=== PATIENT | female | born 1975 | race Caucasian/White ===

== ENCOUNTER 2017-04-28 13:11 | Emergency (ER) | payer OTHER ==
--- NOTE | 2017-04-28 15:36 | RAD ---
HISTORY: Trauma, chest pain no COMPARISONS: None VIEWS: 8, Frontal view of the chest with frontal and oblique views of the left hemithorax FINDINGS: There is no displaced rib fracture or pneumothorax. The visualized lungs are clear. IMPRESSION: NO DISPLACED RIB FRACTURE OR PNEUMOTHORAX.
--- NOTE | 2017-04-28 15:44 | ED ---
Respiratory - HPI Summary HPI Summary: 41F presents with left sided rib pain for a day. She states that last night she tripped over her dog and landed on left side of her ribs. She admits to pain with deep breath. She states it is rib pain and to chest pain. She has history of emphysema so she has been using the incentive spirometry at home to prevent pneumonia. She denies any cough or fever. She denies any head injury or abdominal pain. She has history of back pain which she is on morphine for. She states the morphine is barely touching her pain. - History of Current Complaint Chief Complaint: EDGeneral Stated Complaint: FALL Time Seen by Provider: 04/28/17 15:15 Pain Intensity: 10 - Allergy/Home Medications Allergies/Adverse Reactions: Allergies Allergy/AdvReac Type Severity Reaction Status Date / Time Penicillin G Allergy Severe Hives Verified 03/03/16 11:40 Adhesive Tape Allergy Mild Rash Verified 03/03/16 11:40 Diphenhydramine Allergy Hives Verified 03/03/16 11:40 [From Benadryl] Ibuprofen [From Motrin] Allergy Rash Verified 03/03/16 11:40 Levofloxacin Allergy Itching Verified 03/03/16 11:40 PMH/Surg Hx/FS Hx/Imm Hx Endocrine/Hematology History: Denies: Hx Diabetes Cardiovascular History: Denies: Hx Hypertension, Hx Pacemaker/ICD Respiratory History: Reports: Hx Chronic Obstructive Pulmonary Disease (COPD) - RECENT HOSPITALIZATION, Hx Pneumonia, Other Respiratory Problems/Disorders - Pack a day smoker History: Denies: Hx Renal Disease Musculoskeletal History: Reports: Hx Back Problems Sensory History: Reports: Hx Contacts or Glasses Denies: Hx Hearing Aid Opthamlomology History: Reports: Hx Contacts or Glasses Psychiatric History: Denies: Hx Panic Disorder - Surgical History Surgery Procedure, Year, and Place: 2 LEFT KNEE SURGERIES-RIGHT LOBE LUNG REOPENED. 2 C-SECTIONS. RT WRIST CARPAL TUNNEL. RT ELBOW ULNAR NERVE RELEASE Infectious Disease History: Denies: Traveled Outside the [place] in Last 30 Days - Family History Known Family History: Positive: Cardiac Disease - mother, Hypertension - father - Social History Alcohol Use: None Substance Use Type: Reports: None Hx Tobacco Use: Yes Smoking Status (MU): Heavy Every Day Tobacco Smoker Review of Systems Negative: Fever Positive: Other - rib pain. Negative: Chest Pain Positive: Shortness Of Breath - with deep breath due to pain. Negative: Cough Negative: Headache All Other Systems Reviewed And Are Negative: Yes Physical Exam Triage Information Reviewed: Yes Vital Signs On Initial Exam: Initial Vitals Temp Pulse Resp BP Pulse Ox 98.3 F 94 16 114/70 94 04/28/17 14:00 04/28/17 14:00 04/28/17 14:00 04/28/17 14:00 04/28/17 14:00 Vital Signs Reviewed: Yes Appearance: Positive: Well-Appearing Skin: Positive: Warm, Dry, Other - ecchmoysis over ribs 2-5 on anterior side of left chest near sternum Head/Face: Positive: Normal Head/Face Inspection Eyes: Positive: Normal, EOMI, KUMAR, Conjunctiva Clear ENT: Positive: Normal ENT inspection, Pharynx normal, TMs normal Respiratory/Lung Sounds: Positive: Clear to Auscultation, Decreased Breath Sounds - is patient baseline due to emphysema Cardiovascular: Positive: Normal, RRR Diagnostics - Vital Signs Vital Signs Temp Pulse Resp BP Pulse Ox 04/28/17 14:00 98.3 F 94 16 114/70 94 - Laboratory Lab Statement: Any lab studies that have been ordered have been reviewed, and results considered in the medical decision making process. Disposition - Course Course Of Treatment: 41F presents with left sided rib pain for a day. She states that last night she tripped over her dog and landed on left side of her ribs. She admits to pain with deep breath. She states it is rib pain and to chest pain. She has history of emphysema so she has been using the incentive spirometry at home to prevent pneumonia. [facility] denies any cough or fever. She denies any head injury or abdominal pain. She has history of back pain which she is on morphine for. She states the morphine is barely touching her pain. on exam has ecchymosis over anterior rib 2-5. no step off, xray normal. told to continue incentive spirometry and follow up with primary. will return if develops pneumonia. patient understands and agrees with plan. - Differential Dx - Cardiopulmonary Differential Diagnoses - Cardiopulmonary: Pneumothorax, Other - fracture, contusion - Diagnoses Provider Diagnoses: Contusion of rib Discharge - Discharge Plan Condition: Good Disposition: HOME Patient Education Materials: Rib Contusion (ED) Referrals: Tuan Shannon DO [Primary Care Provider] - Additional Instructions: Take deep breath throughout the day Use normal pain medication Follow up with primary care physician within 5 days Return to ED if develop new productive cough, fever, or any new or worsening symptoms
[2017-04-28 15:50] VITALS: BP 102/60
== END 2017-04-28 16:07 | disposition home or self-care (01) ==
LOC: ED 13:11
DX: S20.212A Contusion of left front wall of thorax, initial encounter (principal); W01.0XXA Fall on same level from slipping, tripping and stumbling without subsequent striking against object, initial encounter; Y93.9 Activity, unspecified; Y92.9 Unspecified place or not applicable; R07.81 Pleurodynia; F17.210 Nicotine dependence, cigarettes, uncomplicated; R06.02 Shortness of breath
CPT/HCPCS: 71111; 99281

== ENCOUNTER 2017-12-04 15:15 | Emergency (ER) | payer OTHER ==
[2017-12-04] MEDS ORDERED: Albuterol/Ipratropium NEB.SOL* Albuterol 2.5 MG/Ipratropium 0.5 MG 3 ML INH ONE (16:31)
[2017-12-04] MEDS ORDERED: predniSONE TAB* 20 MG PO ONE (16:31)
--- NOTE | 2017-12-04 17:30 | RAD ---
INDICATION: Shortness of breath. COMPARISON: Chest x-ray dated June 25, 2016 TECHNIQUE: PA and lateral views of the chest were obtained. FINDINGS: The heart and mediastinum are normal in size and contour. The lungs are grossly clear. There is no evidence of large pleural effusion. Visualized bones are normal for the patient's age. There is no radiographic evidence of free air beneath the diaphragm IMPRESSION: No radiographic evidence of acute cardiopulmonary disease.
[2017-12-04 19:41] VITALS: BP 104/64
--- NOTE | 2017-12-04 19:51 | ED ---
Mariano Vora Thomas, scribed for Odin Grewal MD on 12/04/17 at 1641 . Shortness of Breath - HPI Summary HPI Summary: The patient is a 42 year old female complaining of a sensation of inability to take a deep breath for the last three days. She complains of a yellow productive cough and chills. Past medical history includes COPD. She is on Ventolin, albuterol, Spiriva, gabapentin, and morphine. The patient is on oxygen at night and as needed. - History of Current Complaint Chief Complaint: EDGeneral Time Seen by Provider: 12/04/17 15:30 Hx Obtained From: Patient Onset/Duration: Lasting Days - 3, Still Present Timing: Constant Current Severity: Mild Dyspnea At: Rest Aggrevating Factors: Deep Breaths Associated Signs & Symptoms: Cough (Productive), Chills - Allergy/Home Medications Allergies/Adverse Reactions: Allergies Allergy/AdvReac Type Severity Reaction Status Date / Time MS Penicillin G Allergy Severe Hives Verified 12/04/17 15:22 [Penicillin G] Adhesive Tape Allergy Mild Rash Verified 12/04/17 15:22 MS Diphenhydramine Allergy Hives Verified 12/04/17 15:22 [From Benadryl] MS Ibuprofen [From Motrin] Allergy Rash Verified 12/04/17 15:22 MS Levofloxacin Allergy Itching Verified 12/04/17 15:22 [Levofloxacin] PMH/Surg Hx/FS Hx/Imm Hx Endocrine/Hematology History: Denies: Hx Diabetes Cardiovascular History: Denies: Hx Hypertension, Hx Pacemaker/ICD Respiratory History: Reports: Hx Chronic Obstructive Pulmonary Disease (COPD) - RECENT HOSPITALIZATION, Hx Pneumonia, Other Respiratory Problems/Disorders - Pack a day smoker History: Denies: Hx Renal Disease Musculoskeletal History: Reports: Hx Back Problems Sensory History: Reports: Hx Contacts or Glasses Denies: Hx Hearing Aid Opthamlomology History: Reports: Hx Contacts or Glasses Psychiatric History: Denies: Hx Panic Disorder - Surgical History Surgery Procedure, Year, and Place: 2 LEFT KNEE SURGERIES-RIGHT LOBE LUNG REOPENED. 2 C-SECTIONS. RT WRIST CARPAL TUNNEL. RT ELBOW ULNAR NERVE RELEASE Infectious Disease History: No Infectious Disease History: Denies: Traveled Outside the [place] in Last 30 Days - Family History Known Family History: Positive: Cardiac Disease - mother, Hypertension - father - Social History Alcohol Use: None Substance Use Type: Reports: None Hx Tobacco Use: Yes Smoking Status (MU): Light Every Day Tobacco Smoker Review of Systems Positive: Chills. Negative: Fever Positive: Shortness Of Breath, Cough - productive All Other Systems Reviewed And Are Negative: Yes Physical Exam - Summary Physical Exam Summary: Appearance: The patient is well-nourished in no acute distress and in no acute pain. Skin: The skin is warm and dry and skin color reflects adequate perfusion. HEENT: The head is normocephalic and atraumatic. The pupils are equal and reactive. The conjunctivae are clear and without drainage. Nares are patent and without drainage. Mouth reveals moist mucous membranes and the throat is without erythema and exudate. The external ears are intact. The ear canals are patent and without drainage. The tympanic membranes are intact. Neck: the neck is supple with full range of motion and non-tender. There are no carotid bruits. There is no neck vein distension. Respiratory: Chest is non-tender. She has decreased breath sounds. She has some expiratory wheezes. Cardiovascular: Heart is regular rate and rhythm. There is no murmur or rub auscultated. There is no peripheral edema and pulses are symmetrical and equal. Abdomen: The abdomen is soft and non-tender. There are normal bowel sounds heard in all four quadrants and there is no organomegaly palpated. Musculoskeletal: There is no back tenderness noted. Extremities are non-tender with full range of motion. There is good capillary refill. There is no peripheral edema or calf tenderness elicited. Neurological: Patient is alert and oriented to person, place and time. The patient has symmetrical motor strength in all four extremities.~Cranial nerves are grossly intact. Deep tendon reflexes are symmetrical and equal in all four extremities. Psychiatric: The patient has an appropriate affect and does not exhibit any anxiety or depression. Triage Information Reviewed: Yes Vital Signs On Initial Exam: Initial Vitals Temp Pulse Resp BP Pulse Ox 97.8 F 122 28 130/78 91 12/04/17 15:17 12/04/17 15:17 12/04/17 15:17 12/04/17 15:17 12/04/17 15:17 Vital Signs Reviewed: Yes Diagnostics - Vital Signs Vital Signs Temp Pulse Resp BP Pulse Ox 12/04/17 15:31 98.5 F 99 16 128/78 94 03/18/18 15:17 97.8 F 122 28 130/78 91 - Laboratory Lab Statement: Any lab studies that have been ordered have been reviewed, and results considered in the medical decision making process. - Radiology CXR Xray Interpretation: No Acute Changes - No radiographic evidence of acute cardiopulmonary disease. Dr. Grewal has reviewed this report. Radiology Interpretation Completed By: Radiologist - EKG 15:42 Cardiac Rate: NL EKG Rhythm: Sinus Rhythm - at 97 BPM Re-Evaluation - Re-Evaluation First Eval Re-Evaluation Time: 19:24 Comment: Results discussed. Patient will be discharged. Course/Dx - Course Course Of Treatment: Ms. Randhawa presentedto the ED with a COPD exacerbation and a productive cough of a few days duration. She improved with a duoneb and was started on steroids and antibiotics. - Diagnoses Provider Diagnoses: COPD exacerbation Discharge - Discharge Plan Condition: Stable Disposition: HOME Prescriptions: Clarithromycin TAB* [Biaxin TAB*] 500 mg PO BID #20 tab methylPREDNISolone [Medrol Dosepak 4 MG*] 4 mg PO .SEE JUSTINA INSTRUCTION #1 tab Patient Education Materials: COPD (Chronic Obstructive Pulmonary Disease) (ED) Referrals: Tuan Shannon DO [Primary Care Provider] - 3 Days Additional Instructions: Follow up with your primary care physician in three days. Return to the emergency department for any new or worsening symptoms. The documentation as recorded by the Mariano mathews Thomas accurately reflects the service I personally performed and the decisions made by Uri fleming Richard L, MD.
== END 2017-12-04 19:41 | disposition home or self-care (01) ==
LOC: ED 15:15
DX: J44.1 Chronic obstructive pulmonary disease with (acute) exacerbation (principal); F17.200 Nicotine dependence, unspecified, uncomplicated; Z88.3 Allergy status to other anti-infective agents; Z88.0 Allergy status to penicillin; Z88.8 Allergy status to other drugs, medicaments and biological substances
CPT/HCPCS: 71046; 93005; 94640; 99283; A9270-GY; J7512

== ENCOUNTER 2017-12-05 18:43 | Observation (INO) | payer OTHER ==
[2017-12-05] MEDS ORDERED: Albuterol/Ipratropium NEB.SOL* Albuterol 2.5 MG/Ipratropium 0.5 MG 3 ML INH ONE (21:20)
[2017-12-05] MEDS ORDERED: methylPREDNISolone 125 MG* 2 ML VIAL IV ONE (21:20)
[2017-12-05] MEDS ORDERED: Magnesium Sulfate 2 GM IV* 2 GM/50 ML BAG IVPB ONE (21:20)
[2017-12-05] MEDS: Albuterol 2.5 MG/3 ML NEB.SOL* (0.083%) INH SCH (21:53)
[2017-12-05 21:55] LABS: ABS Basophils 0 10^3/ul (0-0.2); ABS Eosinophils 0 10^3/ul (0-0.6); ABS Lymphocytes 1.2 10^3/ul (1.0-4.8); ABS Monocytes 0.2 10^3/ul (0-0.8); ABS Neutrophils 7.7 10^3/ul (1.5-7.7); ABS Nucleated RBC 0 10^3/ul; Eosinophil % 0 % (0-6); Hematocrit 51 % (35-47); Hemoglobin 17.7 g/dl (12.0-16.0); Lymphocyte % 13.2 % (25-47); Mean Corpuscular HGB Conc 35 g/dl (31-36); Mean Corpuscular Hemoglobin 34 pg (27-31); Mean Corpuscular Volume 98 fL (80-97); Mean Platelet Volume 9 um3 (7.4-10.4); Nucleated Red Blood Cells % 0.1; Platelet Count 166 10^3/ul (150-450); Red Blood Count 5.21 10^6/ul (4.0-5.4); Red Cell Distribution Width 13 % (10.5-15); White Blood Count 9.2 10^3/ul (3.5-10.8)
[2017-12-05 22:06] LABS: INR 0.97 (0.77-1.02)
[2017-12-05 22:14] LABS: EGFR Non-African American 77.2 (>60)
[2017-12-05] MEDS ORDERED: NS 0.9% 1000 ML* 1,000 ML IV ONE (22:54)
[2017-12-05] MEDS ORDERED: Iohexol 350* (CONTRAST) 500 ML MDV IV ONE (23:06)
[2017-12-06] MEDS: Albuterol 2.5 MG/3 ML NEB.SOL* (0.083%) INH SCH (00:42)
--- NOTE | 2017-12-06 01:28 | ED ---
Mariano Vora Thomas, scribed for Celia Mckinney MD on 12/05/17 at 2145 . Shortness of Breath - HPI Summary HPI Summary: The patient is a 42 year old female complaining of shortness of breath and pain when breathing that began four days ago. She has a history of COPD and she is on 2L of home oxygen. She took her normal breathing treatments earlier today. Yesterday, the patient was seen at [facility] and prescribed antibiotics and steroids , which she has been taking as directed. She took acetaminophen four hours before arrival. - History of Current Complaint Chief Complaint: EDShortnessOfBreath Time Seen by Provider: 12/05/17 21:11 Hx Obtained From: Patient Onset/Duration: Lasting Days - 4, Still Present Timing: Constant Current Severity: Mild Dyspnea At: Rest Aggrevating Factors: Nothing Alleviating Factors: Other - Patient has been taking normal breathing treatments - Allergy/Home Medications Allergies/Adverse Reactions: Allergies Allergy/AdvReac Type Severity Reaction Status Date / Time Adhesive Tape Allergy Mild Rash Verified 12/05/17 19:17 diphenhydramine Allergy Hives Verified 12/05/17 19:17 [From Benadryl] ibuprofen [From Motrin] Allergy Rash Verified 12/05/17 19:17 levofloxacin [From Levaquin] Allergy Itching Verified 12/05/17 19:17 Penicillins Allergy Hives Verified 12/05/17 19:17 PMH/Surg Hx/FS Hx/Imm Hx Endocrine/Hematology History: Denies: Hx Diabetes Cardiovascular History: Denies: Hx Hypertension, Hx Pacemaker/ICD Respiratory History: Reports: Hx Chronic Obstructive Pulmonary Disease (COPD) - RECENT HOSPITALIZATION, Hx Pneumonia, Other Respiratory Problems/Disorders - Pack a day smoker History: Denies: Hx Renal Disease Musculoskeletal History: Reports: Hx Back Problems Sensory History: Reports: Hx Contacts or Glasses Denies: Hx Hearing Aid Opthamlomology History: Reports: Hx Contacts or Glasses Psychiatric History: Denies: Hx Panic Disorder - Surgical History Surgery Procedure, Year, and Place: 2 LEFT KNEE SURGERIES-RIGHT LOBE LUNG REOPENED. 2 C-SECTIONS. RT WRIST CARPAL TUNNEL. RT ELBOW ULNAR NERVE RELEASE Infectious Disease History: No Infectious Disease History: Denies: Traveled Outside the [place] in Last 30 Days - Family History Known Family History: Positive: Cardiac Disease - mother, Hypertension - father - Social History Alcohol Use: None Substance Use Type: Reports: None Hx Tobacco Use: Yes Smoking Status (MU): Light Every Day Tobacco Smoker Review of Systems Negative: Fever Positive: Shortness Of Breath, Other - Pain with breathing All Other Systems Reviewed And Are Negative: Yes Physical Exam - Summary Physical Exam Summary: VITAL SIGNS: Reviewed. GENERAL: Patient is a well-developed and nourished female who is lying comfortable in the stretcher. Patient is not in any acute respiratory distress. HEAD AND FACE: No signs of trauma. No ecchymosis, hematomas or skull depressions. No sinus tenderness. EYES: PERRLA, EOMI x 2, No injected conjunctiva, no nystagmus. EARS: Hearing grossly intact. Ear canals and tympanic membranes are within normal limits. MOUTH: Oropharynx within normal limits. NECK: Supple, trachea is midline, no adenopathy, no JVD, no carotid bruit, no c- spine tenderness, neck with full ROM. CHEST: Symmetric, no tenderness at palpation LUNGS: She has bilateral inspiratory and expiratory wheezes. CVS: Regular rate and rhythm, S1 and S2 present, no murmurs or gallops appreciated. ABDOMEN: Soft, non-tender. No signs of distention. No rebound no guarding, and no masses palpated. Bowel sounds are normal. EXTREMITIES: FROM in all major joints, no edema, no cyanosis or clubbing. NEURO: Alert and oriented x 3. No acute neurological deficits. Speech is normal and follows commands. SKIN: Dry and warm Triage Information Reviewed: Yes Vital Signs On Initial Exam: Initial Vitals Temp Pulse Resp BP Pulse Ox 98.5 F 129 24 101/48 98 12/05/17 19:12 12/05/17 19:12 12/05/17 19:12 12/05/17 19:12 12/05/17 19:12 Vital Signs Reviewed: Yes Diagnostics - Vital Signs Vital Signs Temp Pulse Resp BP Pulse Ox 12/05/17 20:54 82 20 12/05/17 20:49 99.1 F 133/79 97 12/05/17 19:12 98.5 F 129 24 101/48 98 - Laboratory Result Diagrams: 12/05/17 21:40 12/05/17 22:32 Lab Statement: Any lab studies that have been ordered have been reviewed, and results considered in the medical decision making process. - Radiology CXR Xray Interpretation: No Acute Changes - Hyperinflation. No acute infiltrate. Pending offical report. Radiology Interpretation Completed By: ED Physician - CT CTA Chest/Thorax CT Interpretation: No Acute Changes - No pulmonary embolism. No aortic dissection or aneurysm. No pneumonia or pleural effusions. Minmal dependent mucus left main bronchus. Minimal biapical scarring. Small blebs bilateral lungs. Minimal anterior mediastinal soft tissue, probably thymic. Dr. Mckinney has reviewed this report. CT Interpretation Completed By: Radiologist - EKG 21:25 Cardiac Rate: NL EKG Rhythm: Sinus Rhythm - at 100 BPM EKG Interpretation: Normal axis, normal intervals, no acute ischemic change. Re-Evaluation - Re-Evaluation First Eval Re-Evaluation Time: 01:20 Comment: Results discussed. Patient will be admitted. Course/Dx - Course Assessment/Plan: The patient is a 42 year old female complaining of shortness of breath and pain when breathing that began four days ago. In the ED course the patient was given Ventolin, DuoNeb, magnesium sulfate, and Solu-Medrol. Bloodwork was obtained. EKG shows sinus rhythm. CXR shows hyperinflation with no acute infiltrate. CTA Chest/Thorax shows No pulmonary embolism. No aortic dissection or aneurysm. No pneumonia or pleural effusions. Minmal dependent mucus left main bronchus. Minimal biapical scarring. Small blebs bilateral lungs. Minimal anterior mediastinal soft tissue, probably thymic. The patient is diagnosed with COPD exacerbation. Dr. Landers will admit the patient. - Diagnoses Provider Diagnoses: COPD exacerbation - Physician Notifications Discussed Care of Patient With: Halima Landers Time Discussed With Above Provider: 01:20 Instructed by Provider To: Admit As Inpatient Discharge - Discharge Plan Condition: Stable Disposition: ADMITTED TO [facility] Referrals: Tuan Shannon DO [Primary Care Provider] - The documentation as recorded by the Mariano mathews Thomas accurately reflects the service I personally performed and the decisions made by me, Celia Mckinney MD.
[2017-12-06] MEDS ORDERED: Acetaminophen TAB* 325 MG PO PRN (01:36)
[2017-12-06] MEDS ORDERED: Docusate CAP* 100 MG PO PRN (01:36)
[2017-12-06] MEDS ORDERED: Al Hydrox/Mg Hydrox/Simet LIQ* 30 ML UDC PO PRN (01:36)
[2017-12-06] MEDS ORDERED: Ondansetron INJ* 2 MG/ML VIAL IV PRN (01:36)
[2017-12-06] MEDS ORDERED: Senna TAB PO PRN (01:36)
[2017-12-06] MEDS ORDERED: Albuterol 2.5 MG/3 ML NEB.SOL* (0.083%) INH PRN (01:39)
[2017-12-06] MEDS ORDERED: Morphine ORAL.SOLN 10 mg* 2 MG/ML UDC 5 ml PO PRN (01:42)
[2017-12-06] MEDS ORDERED: Albuterol/Ipratropium NEB.SOL* Albuterol 2.5 MG/Ipratropium 0.5 MG 3 ML INH SCH (02:00)
[2017-12-06] MEDS ORDERED: Spiriva Inhaler DEVICE* 1 EACH DEVICE SCH (02:00)
[2017-12-06] MEDS ORDERED: Spiriva Inhaler DEVICE* 1 EACH DEVICE INH SCH (02:00)
[2017-12-06] MEDS ORDERED: Mouth Piece, Nicotine* 1 EACH CARTRIDGE INH PRN ×2 (02:02)
[2017-12-06] MEDS ORDERED: Nicotine Inhaler* 10 MG AMP INH PRN (02:02)
[2017-12-06] MEDS: NS 0.9% 1000 ML* 1,000 ML IV SCH ×2 (03:22→10:24)
[2017-12-06] MEDS: Albuterol/Ipratropium NEB.SOL* Albuterol 2.5 MG/Ipratropium 0.5 MG 3 ML INH SCH ×4 (03:35→15:33)
[2017-12-06] MEDS: Gabapentin CAP(*) 300 MG PO SCH ×3 (03:41→14:11)
[2017-12-06] MEDS: Morphine TAB Extended Release (*) 30 MG TAB.ER PO SCH ×2 (03:43→14:10)
[2017-12-06] MEDS: Heparin VIAL(*) 5000 UNITS/ML VIAL (FIVE THOUSAND) SUBCUT SCH ×2 (05:42→14:12)
--- NOTE | 2017-12-06 07:54 | RAD ---
INDICATION: Shortness of breath. COMPARISON: Comparison is made with prior study from December 04, 2017. TECHNIQUE: A single AP portable view of the chest was obtained upright. FINDINGS: The heart is within normal limits in size. Mediastinal and hilar contours appear within normal limits. The lungs are hyperinflated and clear. No pleural effusion is seen. IMPRESSION: NO EVIDENCE FOR ACUTE FINDING.
--- NOTE | 2017-12-06 08:16 | RAD ---
INDICATION: 2 days of shortness of breath COMPARISON: CTA of the chest January 25, 2015 TECHNIQUE: Axial source images were acquired following the administration of 59 mL Omnipaque [address] angiographic technique. Coronal and sagittal reconstructed images were constructed and reviewed. FINDINGS: There there are no filling defects in the pulmonary arteries to indicate acute pulmonary embolic disease. The lungs exhibit diffuse centrilobular emphysematous changes. There are no focal infiltrates or effusions. There are no pulmonary parenchymal masses. The heart is normal in size. There is no evidence of pericardial effusion. There is no evidence of aortic aneurysm or dissection. There is no mediastinal, hilar, or axillary lymphadenopathy. The contrast was injected from the right upper extremity and there is evidence of high-grade stenosis through the right subclavian vein. There is reflux of contrast into the dilated right internal jugular vein likely due to the narrowing seen more inferiorly of the brachiocephalic confluence and superior vena cava. Contrast is seen refluxing into the hepatic veins and IVC as well. This is worse when compared to the January 25, 2015 CTA of the chest. The visualized osseous structures appear normal. Limited views of the upper abdomen show no abnormalities. IMPRESSION: 1. No CT of evidence of pulmonary embolism. 2. Diffuse centrilobular emphysematous changes similar to the appearance seen on the January 25, 2015 CT examination. 3. 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 Please correlate to a history of central venous catheters and/or signs and symptoms of central vein insufficiency which could be characterized by swelling and venous hypertension in the upper extremities as well as the head and neck. 4. Reflux of contrast into the IVC and hepatic veins could be seen in the setting of right heart insufficiency.
--- NOTE | 2017-12-06 08:33 | HP ---
CC: Tuan Shannon DO; Fiona King MD * HISTORY AND PHYSICAL: DATE OF ADMISSION: 12/06/17 TIME OF EVALUATION: 0100. PRIMARY CARE PHYSICIAN: Tuan Shannon DO EQUINE SCIENCE INSTRUCTOR: Fiona King MD CHIEF COMPLAINT: Shortness of breath. HISTORY OF PRESENT ILLNESS: This is a 42-year-old female with a past medical history of COPD, on oxygen at bedtime and as needed, with a tobacco history, who presents to the emergency room for the second time in 2 days for shortness of breath. The patient states for the past 3 days she has had shortness of breath and productive cough. She came to the emergency room on the . She was sent home on steroids and antibiotics. She states there was no improvement in her breathing. She returned this evening for worsening shortness of breath. She states she has had fever or low- grade temp of 99.2, chills, chest heaviness. No nausea or vomiting. No abdominal pain. No diarrhea. No dysuria. No constipation. She denies any sick contacts. She is seen by Dr. King and has been using her inhalers and regimen accordingly. Otherwise, remaining review of systems is negative. In the the emergency room, the patient had labs and imaging. She was given a liter of fluid, Solu-Medrol 125 mg IV, magnesium sulfate 2 g, DuoNeb, and albuterol nebulizer, and was referred to the hospitalist service for further evaluation. PAST MEDICAL HISTORY: 1. COPD with extensive emphysema, on oxygen at bedtime and as needed, followed by Dr. King. 2. History of chronic pain. 3. Carpal tunnel syndrome. 4. History of polycythemia vera. 5. Anxiety. 6. Rheumatoid arthritis. 7. History of herniated disks. MEDICATIONS: 1. Albuterol nebulizer and inhaler with spacer as needed. 2. Spiriva. 3. Gabapentin 1200 mg p.o. t.i.d. 4. Morphine 60 mg p.o. b.i.d. 5. Morphine liquid; per patient, she takes 80 mg 4 times a day. 6. Symbicort. ALLERGIES: Adhesive tape, diphenhydramine, ibuprofen, levofloxacin, and penicillin. FAMILY HISTORY: Paternal grandmother with asthma, otherwise unremarkable pulmonary history. SOCIAL HISTORY: The patient lives at home with her 17-year-old child. She also has a grown child that is not living in the home. She is . She is still continuing trying to cut smoking; she is still down to 5 cigarettes per day. The max she smoked was 3 to 4 pack per day for several years. Her healthcare proxy is her father, Sharad Alvarez. No alcohol or illicit drug use. She is on disability. CODE STATUS: Full code. REVIEW OF SYSTEMS: A 14-point review of systems as mentioned in the HPI, otherwise negative. PHYSICAL EXAMINATION GENERAL: Older than stated age female in no acute distress, mildly ill appearing. VITAL SIGNS: Temp T-max 99.1, pulse rate 101, respiratory rate 20, oxygen saturation 89% on 3 L, and blood pressure 116/75. HEENT: Head normocephalic. Pupils equal and reactive, anicteric. Oropharynx: Mucous membranes are dry. NECK: Supple, no lymphadenopathy. RESPIRATORY: Poor aeration. Coarse rhonchi bilaterally with expiratory wheezing. No increased work of breathing noted. CARDIAC: Tachycardia. Soft systolic murmur heard throughout. ABDOMEN: Soft, nontender, nondistended. EXTREMITIES: No clubbing, cyanosis or edema, +2 DPs. NEUROLOGIC: Alert and oriented x3. No gross focal neurologic deficits. LABORATORY DATA: White count 9.2, hemoglobin 17.7, hematocrit 51, platelets 166. INR 0.97. Sodium 135, potassium 4.3, chloride 99, bicarb 28, BUN 17, creatinine 0.81, glucose 99, lactic acid 1.1, calcium 10.4. Troponin is zero. CRP is 1. BNP 25. Influenza negative. RADIOGRAPHIC DATA: Chest x-ray - no acute findings on wet read; chronic COPD changes with hyperinflation. CTA of the chest shows no pulmonary embolism, no aortic dissection or aneurysm, no pneumonia or pleural effusions, minimal dependent mucus left main bronchus, minimal biapical scarring, small blebs bilateral lungs, minimal anterior mediastinal soft tissue, probably thymic. ASSESSMENT: This is a 42-year-old female with a past medical history of COPD, on oxygen at bedtime, with chronic pain and tobacco use who presents to the emergency room for the second time in 2 days for worsening shortness of breath and cough. 1. Shortest of breath and cough. Assessment: Findings are consistent with chronic obstructive pulmonary disease exacerbation, most likely secondary to a viral illness. No white count, no fever. Her flu is negative. Plan: We will continue albuterol q.2 hours as needed, DuoNeb scheduled. Continue on her Z-Roberto, azithromycin 250 mg daily. We will continue on prednisone 40 mg daily and IV fluids and incentive spirometer. We will continue her Spiriva. If no clinical improvement, we would recommend followup with Dr. King inpatient; otherwise, she should follow up with her as an outpatient. We will check a sputum. We will also continue to trend her troponins for her chest heaviness. I suspect this is related to costochondritis from her coughing and chronic obstructive pulmonary disease exacerbation. CHRONIC MEDICAL PROBLEMS: 1. Chronic pain. The amount of narcotics she's on is highly concerning, which may be affecting her respiratory drive. I would recommend followup with her primary care physician to discuss weaning her down off her morphine. We will continue her home dose as prescribed for now, and her gabapentin as well. 3. FEN. We will place the patient on regular diet with IV fluids. 4. DVT prophylaxis. The patient scores moderate risk. We will place her on heparin subcu t.i.d. 5. Code status. Full code. PATIENT TIME: Greater than 45 minutes were spent doing the history and physical ; more than half the time was spent in direct patient contact. [id number]/[facility] #: [id number] RAQUEL
[2017-12-06] MEDS ORDERED: Tiotropium CAP.INH* CAP.INH/18 MCG (USE ORDER SET !) INH SCH (09:00)
[2017-12-06] MEDS ORDERED: Morphine TAB Extended Release (*) 30 MG TAB.ER PO SCH (09:00)
[2017-12-06] MEDS ORDERED: Gabapentin CAP(*) 300 MG PO SCH (09:00)
[2017-12-06] MEDS ORDERED: Pneumococcal *Vac Polyvalent 0.5 ML VIAL IM ONE (09:00)
[2017-12-06] MEDS ORDERED: Mometasone/Formoter 200/5 MDI INH SCH (09:00)
[2017-12-06] MEDS ORDERED: Azithromycin TAB* 250 MG PO SCH (09:00)
[2017-12-06] MEDS ORDERED: predniSONE TAB* 20 MG PO SCH (09:00)
[2017-12-06] MEDS: Morphine ORAL.SOLN 10 mg* 2 MG/ML UDC 5 ml PO PRN ×2 (09:05→16:25)
[2017-12-06] MEDS ORDERED: Nicotine PATCH 21 MG/24 HR* PATCH TRANSDERM SCH (10:00)
--- NOTE | 2017-12-06 10:48 | PN ---
Hospitalist Progress Note Date of Service: 12/06/17 I have seen and examined Ms. Randhawa and assume her care today. She feels better this morning, is sitting up in the chair and is breathing comfortably, able to speak in full sentences, is not using any accessory respiratory muscles , and believes she is already getting better. On exam, she is on 93% on 2L O2, 92/51, HR in the 60s no facial plethora or swelling, no upper extremity swelling, and radial pulses are 2+ b/l breath sounds are distant with a prolonged expiratory phase rrr, no murmurs no leg swelling or rashes. + clubbing. Acute exacerbation of COPD. Known to Dr. King, she will see Ms. Randhawa. Continue standing nebs/steroids. 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 Unclear etiology without a mass present. No findings of SVC syndrome on exam. Will discuss with Dr. King.
[2017-12-06 16:31] VITALS: BP 106/49
--- NOTE | 2017-12-06 20:23 | CONS ---
PULMONARY CONSULTATION REPORT: DATE OF CONSULT: 12/06/17 CONSULTATION REQUESTED BY: Radha Rollins DO REASON FOR CONSULT: Evaluation of shortness of breath and abnormal CT chest. HISTORY OF PRESENT ILLNESS: The patient is 42-year-old female with significant smoking history, current smoker, known to me from prior evaluations. The patient presents for evaluation of worsening shortness of breath. The patient reports cold- like symptoms recently. The patient reports sick contacts. Started having worsening of shortness of breath and productive cough with yellow to green phlegm that is changed from her baseline. Symptoms were not improved with inhalers. She was evaluated in the emergency room 2 days ago. She was sent home on steroids and antibiotics. Symptoms did not improve and she decided to come in to emergency room for further evaluation. The patient reports fever with T-max of 99.2. The patient also reports chills and chest tightness. The patient denies nausea, vomiting, abdominal pain, diarrhea, dysuria, constipation, headaches, recent travel. The patient has been compliant with inhalers as prescribed. She is using nebulizers at home along with Spiriva and Symbicort. The patient also has history of hypoxemia and is on O2 supplementation, which she has been compliant with at night. She has not been using oxygen during the day time. The patient continues to smoke, trying to quit, still smoking 5 cigarettes per day. Further evaluation in the emergency room included chest x-ray and CT scan of the chest. I have personally reviewed chest x-ray and CT of the chest. CT of the chest did not reveal suspicious airspace opacities. She was noted to have hyperinflation and emphysematous changes bilaterally. There was mild mediastinal and hilar adenopathy. There is also reported finding of high-grade stenosis in the right subclavian artery along with narrowing of SVC with worsening compared to January of 2015. The patient also with evidence of pulmonary hypertension changes. The patient has a history of polycythemia, used to have phlebotomy in the past, has not had phlebotomy for few years now. The patient did not have significantly elevated bicarb on recent BMP. Lactate was within normal limits. Troponins were within normal limits as is BNP. The patient was admitted for management of COPD exacerbation. PAST MEDICAL HISTORY: 1. COPD, extensive emphysema. 2. Chronic pain syndrome. 3. Carpal tunnel syndrome. 4. Polycythemia vera, received phlebotomy in the past. 5. Anxiety. 6. Rheumatoid arthritis. 7. Herniated disk. MEDICATIONS: 1. Albuterol. 2. Spiriva. 3. Gabapentin. 4. Morphine. 5. Symbicort. ALLERGIES: ADHESIVE TAPE, DIPHENHYDRAMINE, IBUPROFEN, LEVOFLOXACIN, and PENICILLIN. FAMILY HISTORY: Grandmother with asthma. SOCIAL HISTORY: Current smoker, smoking 5 cigarettes per day currently with significant smoking history of 3 to 4 packs per day for several years. No alcohol or drug abuse. She is currently disabled. REVIEW OF SYSTEMS: All 14 systems reviewed and as per HPI. PHYSICAL EXAM: The patient in bed, in no apparent distress. Vital Signs: Temperature 97.6, pulse 83 beats per minute, respiratory rate 16 per minute, O2 sat 95% to 92% on 2 L, blood pressure 102/53. HEENT: Pupils equal and reactive to light. Mucous membranes moist. Respiratory: Diminished air entry bilaterally. Scattered wheezing present. Cardiovascular: S1, S2 present, systolic murmur heard. Abdomen: Soft, nontender, nondistended. Bowel sounds present. Extremities: Normal range of motion. No edema. Skin: No rash or bruises. Neuro: No focal deficits. DIAGNOSTIC STUDIES/LAB DATA: WBC count 9.2, hemoglobin 17.7, hematocrit 51, platelet count 166. Sodium 135, potassium 4.3, chloride 99, bicarb 28, BUN 17, creatinine 0.81, lactic acid 1.1. Troponins within normal limits. BNP 25. CRP 1.05. Influenza A and B negative. Chest x-ray and CT of the chest as described above in HPI. IMPRESSION AND RECOMMENDATIONS: 42-year-old female with significant smoking history, who presents with worsening shortness of breath after failing outpatient therapy for acute bronchitis with reported sick contacts recently and cold-like symptoms, found to have abnormality on CT of the chest with slight worsening compared to prior CTA. 1. Acute chronic obstructive pulmonary disease exacerbation secondary to viral bronchitis, improving. 2. Abnormal CT chest. The patient reports improvement in shortness of breath since admission. The patient has been receiving bronchodilators. She is also on Solu-Medrol. Would recommend converting Solu-Medrol to prednisone and with tapering course when the patient is ready for discharge. Continue with bronchodilators. Continue with Spiriva and Symbicort. The patient not very compliant with oxygen as prescribed, the consequences of hypoxemia were discussed. Smoking cessation education and counseling was performed during today's visit that lasted 4 minutes. The patient willing to cut down and eventually quit smoking, she declined any other help. Abnormal CTA of the chest with evidence of high-grade stenosis in the right subclavian arteries and narrowing of superior vena cava of unclear etiology. The patient has mildly enlarged mediastinal nodes, however, without a lung mass. She has never had any vascular catheters placed in her central veins. The patient does not have any swelling or engorgement of veins in the upper extremity or in the neck area. She does not have any symptoms at this time of superior vena cava. She might benefit from Vascular Surgery consultation for evaluation of these findings. She does have history polycythemia and cor pulmonale and pulmonary hypertension. I am not sure if chronic pulmonary hypertension would be causing the stenosis. The patient does not appear to be having any breast masses on palpation. She would need Vascular Surgery consultation for evaluation of these findings. Thank you for allowing me to participate in the care of your patient. Will follow up with you. [id number]/[facility] #: [id number] RAQUEL
== END 2017-12-06 19:30 | disposition home or self-care (01) ==
LOC: ED 18:43 → INTOOBSV 12-06 01:36 → MED 12-06 01:36
PROVIDERS: ADMIT Pediatrics; ATTEND Internal Medicine
DX: J44.1 Chronic obstructive pulmonary disease with (acute) exacerbation (principal); R06.02 Shortness of breath; F17.210 Nicotine dependence, cigarettes, uncomplicated; G56.00 Carpal tunnel syndrome, unspecified upper limb; D45 Polycythemia vera; M06.9 Rheumatoid arthritis, unspecified; M51.24 Other intervertebral disc displacement, thoracic region
CPT/HCPCS: 36415; 71045; 71275; 80053; 83605; 83880; 84484; 85025; 85610; 85730; 86140; 87040; 87502; 93005; 94640; 94760; 96374; 99285; A9270-GY; G0378; J1644; J2930; J3475; J7512; Q9967

== ENCOUNTER 2018-10-25 03:10 | Emergency (ER) | payer OTHER ==
[2018-10-25] MEDS ORDERED: NS 0.9% 1000 ML** 1,000 ML IV.FLUID IV ONE (03:33)
[2018-10-25] MEDS ORDERED: Acetaminophen TAB* 325 MG PO ONE (03:33)
[2018-10-25] MEDS ORDERED: Albuterol/Ipratropium NEB.SOL* Albuterol 2.5 MG/Ipratropium 0.5 MG 3 ML INH ONE (03:35)
[2018-10-25] MEDS ORDERED: cefTRIAXone(*) 2 GM in NS 0.9% 100 ML* 100 ML IVPB ONE (03:35)
[2018-10-25] MEDS ORDERED: methylPREDNISolone 125 MG* 2 ML VIAL IV ONE (03:36)
[2018-10-25] MEDS ORDERED: Magnesium Sulfate 2 GM IV* 2 GM/50 ML BAG IVPB ONE (03:37)
--- NOTE | 2018-10-25 03:37 | ED ---
Shortness of Breath - HPI Summary HPI Summary: Pt is a 43 y/o F presenting to the ED with a chief complaint of trouble breathing for two days. She uses between 2 and 4 L oxygen at night. Pt reports back pain on the R lower back. - History of Current Complaint Chief Complaint: EDFluSymptoms Time Seen by Provider: 10/25/18 03:30 Hx Obtained From: Patient Onset/Duration: Gradual Onset, Lasting Days, Still Present Timing: Constant Current Severity: Moderate Dyspnea At: Orthopena Aggrevating Factors: Nothing Alleviating Factors: Nothing Associated Signs & Symptoms: Cough (Nonproductive), Wheezing, Chills, Nasal Congestion - Allergy/Home Medications Allergies/Adverse Reactions: Allergies Allergy/AdvReac Type Severity Reaction Status Date / Time Adhesive Tape Allergy Mild Rash Verified 10/25/18 03:26 diphenhydramine Allergy Hives Verified 10/25/18 03:26 [From Benadryl] ibuprofen [From Motrin] Allergy Rash Verified 10/25/18 03:26 levofloxacin [From Levaquin] Allergy Itching Verified 10/25/18 03:26 Penicillins Allergy Hives Verified 10/25/18 03:26 PMH/Surg Hx/FS Hx/Imm Hx Previously Healthy: No Endocrine/Hematology History: Denies: Hx Diabetes Cardiovascular History: Denies: Hx Hypertension, Hx Pacemaker/ICD Respiratory History: Reports: Hx Chronic Obstructive Pulmonary Disease (COPD) - RECENT HOSPITALIZATION, Hx Pneumonia, Other Respiratory Problems/Disorders - Pack a day smoker History: Denies: Hx Renal Disease Musculoskeletal History: Reports: Hx Back Problems Sensory History: Reports: Hx Contacts or Glasses Denies: Hx Hearing Aid Opthamlomology History: Reports: Hx Contacts or Glasses Psychiatric History: Denies: Hx Panic Disorder - Cancer History Hx Chemotherapy: No Hx Radiation Therapy: No - Surgical History Surgery Procedure, Year, and Place: 2 LEFT KNEE SURGERIES-RIGHT LOBE LUNG REOPENED. 2 C-SECTIONS. RT WRIST CARPAL TUNNEL. RT ELBOW ULNAR NERVE RELEASE Infectious Disease History: No Infectious Disease History: Denies: Traveled Outside the [place] in Last 30 Days - Family History Known Family History: Positive: Cardiac Disease - mother, Hypertension - father - Social History Alcohol Use: None Substance Use Type: Reports: None Hx Tobacco Use: Yes Smoking Status (MU): Light Every Day Tobacco Smoker Review of Systems Positive: Fever, Chills Positive: Shortness Of Breath, Cough Positive: Myalgia - back pain All Other Systems Reviewed And Are Negative: Yes Physical Exam - Summary Physical Exam Summary: VITAL SIGNS: Reviewed. GENERAL: Patient is a well-developed and nourished female who is lying comfortable in the stretcher. Patient is not in any acute respiratory distress. HEAD AND FACE: No signs of trauma. No ecchymosis, hematomas or skull depressions. No sinus tenderness. EYES: PERRLA, EOMI x 2, No injected conjunctiva, no nystagmus. EARS: Hearing grossly intact. Ear canals and tympanic membranes are within normal limits. MOUTH: Oropharynx within normal limits. NECK: Supple, trachea is midline, no adenopathy, no JVD, no carotid bruit, no c- spine tenderness, neck with full ROM. CHEST: Symmetric, no tenderness at palpation LUNGS: Decreased breath sounds bilaterally, bilateral respiratory wheezes. CVS: Tachycardic, S1 and S2 present, no murmurs or gallops appreciated. ABDOMEN: Soft, non-tender. No signs of distention. No rebound no guarding, and no masses palpated. Bowel sounds are normal. EXTREMITIES: FROM in all major joints, no edema, no cyanosis or clubbing. NEURO: Alert and oriented x 3. No acute neurological deficits. Speech is normal and follows commands. SKIN: Dry and warm Triage Information Reviewed: Yes Vital Signs On Initial Exam: Initial Vitals Temp Pulse Resp BP Pulse Ox 103.8 F 124 20 110/73 85 10/25/18 03:10 10/25/18 03:10 10/25/18 03:10 10/25/18 03:10 10/25/18 03:10 Vital Signs Reviewed: Yes Diagnostics - Vital Signs Vital Signs Temp Pulse Resp BP Pulse Ox 10/25/18 03:10 103.8 F 124 20 110/73 85 - Laboratory Result Diagrams: 10/25/18 03:47 10/25/18 03:47 Lab Statement: Any lab studies that have been ordered have been reviewed, and results considered in the medical decision making process. - Radiology Chest x-ray Radiology Interpretation Completed By: ED Physician Summary of Radiographic Findings: Findings consistent with COPD. No acute infiltrate. Pending official radiology report. - EKG 0355 Cardiac Rate: Tachycardia - 134bpm EKG Rhythm: Sinus Tachycardia ST Segment: Non-Specific Ectopy: None Course/Dx - Course Course Of Treatment: Pt is a 43 y/o F presenting to the ED with a chief complaint of trouble breathing for two days. Pt reports back pain on the R lower back. She has a hx of COPD and pneumonia and is a PPD smoker. Bilateral decreased breath sounds and wheezing noted upon physical exam. Chest x-ray is consistent with COPD and no acute infiltrate was noted, pending official radiology report. Upon re-evaluation, pt is stable and will be sent home with dxes of COPD, bronchitis, and viral syndrome. She will be off of work for one week, with instructions to take tylenol for her fever, use her oxygen as needed , and take her prescriptions as instructed. - Diagnoses Provider Diagnoses: COPD (chronic obstructive pulmonary disease), Bronchitis, Viral syndrome Discharge - Sign-Out/Discharge Documenting (check all that apply): Patient Departure Patient Received Moderate/Deep Sedation with Procedure: No - Discharge Plan Condition: Stable Disposition: HOME Referrals: Tuan Shannon DO [Primary Care Provider] - Additional Instructions: Please use your oxygen as needed, take tylenol as needed for your fever, and take your prescriptions as directed. Follow up with your primary care provider in 1-2 days. Return to the emergency department with any new or worsening symptoms. - Attestation Statements Document Initiated by Desireeibe: Yes Documenting Scribe: Halima Hardy Provider For Whom Roma is Documenting (Include Credential): Celia Mckinney MD. Scribe Attestation: Halima Vora, desireeibed for Celia Mckinney MD. on 10/25/18 at 0537. Status of Scribe Document: Ready
[2018-10-25] MEDS ORDERED: Albuterol 2.5 MG/3 ML NEB.SOL* (0.083%) INH ONE (03:48)
[2018-10-25 03:57] LABS: Hematocrit 49 % (35-47); Hemoglobin 16.8 g/dl (12.0-16.0); Mean Corpuscular HGB Conc 34 g/dl (31-36); Mean Corpuscular Hemoglobin 35 pg (27-31); Mean Corpuscular Volume 101 fL (80-97); Red Blood Count 4.83 10^6/ul (4.00-5.40); Red Cell Distribution Width 13 % (10.5-15); White Blood Count 6.4 10^3/ul (3.5-10.8)
[2018-10-25 04:06] LABS: Activated Partial Thrombo Time 33.8 seconds (26.0-36.3); INR 1.16 (0.77-1.02)
[2018-10-25 04:12] LABS: Albumin 4.1 g/dL (3.2-5.2); Albumin/Globulin Ratio 1.9 (1-3); C Reactive Protein 30.69 mg/L (<8.01); Calcium 9.3 mg/dL (8.6-10.3); EGFR African American 90.4 (>60); EGFR Non-African American 74.7 (>60); Globulin 2.2 g/dL (2-4); Total Bilirubin 0.6 mg/dL (0.2-1.0); Total Protein 6.3 g/dL (6.4-8.9)
[2018-10-25 04:18] LABS: ABS Basophils 0 10^3/ul (0-0.2); ABS Eosinophils 0 10^3/ul (0-0.6); ABS Lymphocytes 0.2 10^3/ul (1.0-4.8); ABS Monocytes 0.5 10^3/ul (0-0.8); ABS Neutrophils 5.6 10^3/ul (1.5-7.7); ABS Nucleated RBC 0 10^3/ul; Eosinophil % 0 %; Lymphocyte % 3.9 %; Mean Platelet Volume 8.5 fL (7.4-10.4); Nucleated Red Blood Cells % 0; Platelet Count 92 10^3/ul (150-450)
[2018-10-25 04:28] LABS: Influenza A Molecular NEGATIVE (Negative); Influenza B Molecular NEGATIVE (Negative)
[2018-10-25] MEDS: Albuterol 2.5 MG/3 ML NEB.SOL* (0.083%) INH SCH ×2 (04:38→05:16)
[2018-10-25 06:00] VITALS: BP 95/50
== END 2018-10-25 06:24 | disposition home or self-care (01) ==
LOC: ED 03:10
DX: J44.9 Chronic obstructive pulmonary disease, unspecified (principal); Z99.81 Dependence on supplemental oxygen; B34.9 Viral infection, unspecified; R00.0 Tachycardia, unspecified; Z88.6 Allergy status to analgesic agent; Z88.1 Allergy status to other antibiotic agents; Z88.0 Allergy status to penicillin; Z91.048 Other nonmedicinal substance allergy status; F17.200 Nicotine dependence, unspecified, uncomplicated
CPT/HCPCS: 36415; 71045; 80053; 83605; 83880; 84484; 85025; 85060; 85610; 85730; 86140; 87040; 93005; 96365; 96375; 99283; A9270-GY; J0696; J2930; J3475

== ENCOUNTER 2019-08-31 14:19 | Inpatient (IN) | payer OTHER ==
[2019-08-31] MEDS ORDERED: Albuterol/Ipratropium NEB.SOL* Albuterol 2.5 MG/Ipratropium 0.5 MG 3 ML INH ONE (15:47)
[2019-08-31] MEDS ORDERED: Acetaminophen TAB* 325 MG PO ONE (15:47)
--- NOTE | 2019-08-31 15:48 | ED ---
Shortness of Breath - HPI Summary HPI Summary: Patient is a 44-year-old female who presents emergency department for worsening cough and fever. Patient has a history of COPD and wears 4 L oxygen at home chronically. Patient states she has been having increased cough and mucus production over the last 1 week. Patient's only family doctor on Tuesday and was started on azithromycin and prednisone. Patient states she finished azithromycin yesterday but is not feeling any better. She denies associate symptoms of chest pain, abdominal pain and vomiting, diarrhea, urinary symptoms. Symptoms are moderate in severity. No current modifying factors. - History of Current Complaint Chief Complaint: EDRespiratoryDistress Time Seen by Provider: 08/31/19 15:24 Hx Obtained From: Patient - Allergy/Home Medications Allergies/Adverse Reactions: Allergies Allergy/AdvReac Type Severity Reaction Status Date / Time Adhesive Tape Allergy Mild Rash Verified 08/31/19 14:35 diphenhydramine Allergy Hives Verified 08/31/19 14:35 [From Benadryl] ibuprofen [From Motrin] Allergy Rash Verified 08/31/19 14:35 levofloxacin [From Levaquin] Allergy Itching Verified 08/31/19 14:35 Penicillins Allergy Hives Verified 08/31/19 14:35 Home Medications: Home Medications Albuterol HFA INHALER* [Ventolin HFA Inhaler*] 2 puff INH QID PRN 08/31/19 [ History Confirmed 08/31/19] Fluticasone NASAL SPRAY 50MCG* [Flonase NASAL SPRAY 50MCG*] 2 spray BOTH NARES DAILY 08/31/19 [History Confirmed 08/31/19] Gabapentin TAB(NF) [Neurontin 600 mg TAB(NF)] 600 mg PO QID 08/31/19 [History Confirmed 08/31/19] Morphine ORAL CONCENTRATE* 4 ml PO QID PRN 08/31/19 [History Confirmed 08/31/19] predniSONE TAB* [Deltasone 10 MG TAB*] 30 mg PO DAILY 08/31/19 [History Confirmed 08/31/19] PMH/Surg Hx/FS Hx/Imm Hx Previously Healthy: Yes Endocrine/Hematology History: Denies: Hx Diabetes Cardiovascular History: Denies: Hx Hypertension, Hx Pacemaker/ICD Respiratory History: Reports: Hx Chronic Obstructive Pulmonary Disease (COPD) - RECENT HOSPITALIZATION, Hx Pneumonia, Other Respiratory Problems/Disorders - Pack a day smoker History: Denies: Hx Renal Disease Musculoskeletal History: Reports: Hx Back Problems Sensory History: Reports: Hx Contacts or Glasses Denies: Hx Hearing Aid Opthamlomology History: Reports: Hx Contacts or Glasses Psychiatric History: Denies: Hx Panic Disorder - Cancer History Hx Chemotherapy: No Hx Radiation Therapy: No - Surgical History Surgery Procedure, Year, and Place: 2 LEFT KNEE SURGERIES-RIGHT LOBE LUNG REOPENED. 2 C-SECTIONS. RT WRIST CARPAL TUNNEL. RT ELBOW ULNAR NERVE RELEASE Infectious Disease History: No Infectious Disease History: Denies: Traveled Outside the [place] in Last 30 Days - Family History Known Family History: Positive: Cardiac Disease - mother, Hypertension - father , Non-Contributory - Social History Occupation: Unemployed Lives: With Family Alcohol Use: None Substance Use Type: Reports: None Hx Tobacco Use: Yes Smoking Status (MU): Light Every Day Tobacco Smoker Review of Systems Positive: Fever Positive: Nasal Discharge Cardiovascular: Negative Positive: Shortness Of Breath, Cough Gastrointestinal: Negative Negative: Abdominal Pain, Vomiting, Diarrhea Genitourinary: Negative Skin: Negative Positive: Headache. Negative: Weakness, Paresthesia, Numbness All Other Systems Reviewed And Are Negative: Yes Physical Exam Triage Information Reviewed: Yes Vital Signs On Initial Exam: Initial Vitals Temp Pulse Resp BP Pulse Ox 100.3 F 123 18 148/97 90 08/31/19 14:29 08/31/19 14:29 08/31/19 14:29 08/31/19 14:29 08/31/19 14:29 Vital Signs Reviewed: Yes Appearance: Positive: Thin - Pt. sitting wheel chair with NC. Appears older than stated age. Family member present. Skin: Positive: Warm, Dry Head/Face: Positive: Normal Head/Face Inspection Eyes: Positive: Normal, EOMI, KUMAR Neck: Positive: Supple Respiratory/Lung Sounds: Positive: Other - Wheeze and rhonchi through out lower bases Cardiovascular: Positive: Normal, RRR Neurological: Positive: Normal, Alert, Oriented to Person Place, Time, CN Intact II-III Psychiatric: Positive: Affect/Mood Appropriate Procedures - Sedation Patient Received Moderate/Deep Sedation with Procedure: No Diagnostics - Vital Signs Vital Signs Temp Pulse Resp BP Pulse Ox 08/31/19 15:17 121 92 08/31/19 14:29 100.3 F 123 18 148/97 90 - Laboratory Result Diagrams: 08/31/19 15:55 08/31/19 15:55 Lab Statement: Any lab studies that have been ordered have been reviewed, and results considered in the medical decision making process. Course/Dx - Course Course Of Treatment: Pt. with going productive cough. Low grade fever in ED and tachycardic. O2 low 90's on 6 L at rest. Labs shows WBC of 12.1. CRP elevated. Lactic acid 2.4. Pending ECG. Pt. started on 30cc/kg NSS. CXR showing middle lobe infiltrate per radiology. Pt. meeting sepsis criteria, failed outpt. treatment, hospitalist contacted for admission. Case discussed with Dr. Valenzuela who agrees with admission. Pt. with PNC and fluroquinolone allergies, discussed with Dr. Solares who recommends IV doxy and rocephin. Pending admission. - Diagnoses Differential Diagnosis/HQI/PQRI: Positive: COPD Exacerbation, MS, Pneumonia Provider Diagnoses: Pneumonia, Sepsis Discharge ED - Sign-Out/Discharge Documenting (check all that apply): Patient Departure - Discharge Plan Condition: Stable Disposition: ADMITTED TO [facility] Referrals: Tuan Shannon DO [Primary Care Provider] - - Billing Disposition and Condition Condition: STABLE Disposition: Admitted to [facility]
[2019-08-31 16:20] LABS: ABS Lymphocytes 0.6 10^3/ul (1.0-4.8); ABS Monocytes 0.5 10^3/ul (0-0.8); ABS Neutrophils 10.9 10^3/ul (1.5-7.7); Eosinophil % 0.2 %; Hematocrit 50 % (35-47); Hemoglobin 16.7 g/dL (12.0-16.0); Lymphocyte % 5.3 %; Mean Corpuscular HGB Conc 34 g/dL (31-36); Mean Corpuscular Hemoglobin 35 pg (27-31); Mean Corpuscular Volume 104 fL (80-97); Mean Platelet Volume 7.7 fL (7.4-10.4); Nucleated Red Blood Cells % 0.1; Platelet Count 259 10^3/uL (150-450); Red Blood Count 4.76 10^6 /uL (3.70-4.87); Red Cell Distribution Width 14 % (10-15); White Blood Count 12.1 10^3/uL (3.5-10.8)
[2019-08-31] MEDS ORDERED: NS 0.9% 1000 ML** 1,000 ML IV ONE (16:46)
[2019-08-31] MEDS ORDERED: NS 0.9% 1000 ML** 1,000 ML IV.FLUID IV ONE (16:56)
[2019-08-31 17:04] LABS: Influenza A Molecular NEGATIVE (Negative); Influenza B Molecular NEGATIVE (Negative)
[2019-08-31 17:16] LABS: Albumin 3.5 g/dL (3.2-5.2); Albumin/Globulin Ratio 1.3 (1-3); BUN/Creatinine Ratio 13.2 (8-20); C Reactive Protein 86.81 mg/L (<8.01); Calcium 9.1 mg/dL (8.6-10.3); EGFR African American 113.2 (>60); EGFR Non-African American 93.6 (>60); Globulin 2.6 g/dL (2-4); Potassium 3.5 mmol/L (3.5-5.0); Total Bilirubin 0.6 mg/dL (0.2-1.0); Total Protein 6.1 g/dL (6.4-8.9)
[2019-08-31] MEDS ORDERED: cefTRIAXone(*) 1 GM in NS 0.9% 50 ML* 50 ML IVPB ONE (17:19)
[2019-08-31] MEDS ORDERED: DOXYcycline IV* 100 MG in NS 0.9% 250 ML* 250 ML IVPB ONE ×2 (17:19→17:51)
[2019-08-31] MEDS ORDERED: Al Hydrox/Mg Hydrox/Simet LIQ* 30 ML UDC PO PRN (17:43)
[2019-08-31] MEDS ORDERED: Senna TAB 8.6 mg* TAB PO PRN (17:43)
[2019-08-31] MEDS ORDERED: Acetaminophen TAB* 325 MG PO PRN (17:56)
[2019-08-31] MEDS ORDERED: Albuterol HFA INHALER* 8 gm MDI INH PRN (17:56)
[2019-08-31] MEDS ORDERED: Ertapenem* 1 GM in NS 0.9% 50 ML* 50 ML IVPB SCH (18:00)
[2019-08-31] MEDS: Cefepime 2 GM in Dextrose(*) 2 GM/50 ML BAG IV SCH (19:01)
[2019-08-31] MEDS: Enoxaparin(*) 40 MG/0.4 ML SYR SUBCUT SCH (19:51)
--- NOTE | 2019-08-31 20:34 | HP ---
CC: Dr. Shannon * HISTORY AND PHYSICAL: DATE OF ADMISSION: 08/31/19 ATTENDING PHYSICIAN WHILE IN THE HOSPITAL: Dr. Lainey Lux * (dictated by WILBER Gatica). PRIMARY CARE PROVIDER: Dr. Shannon. CHIEF COMPLAINT: Shortness of breath and nasal congestion. HISTORY OF PRESENT ILLNESS: Rasheeda Randhawa is a 44-year-old white female with a past medical history significant for COPD, prescribed overnight oxygen and nonadherent; chronic back pain; PCV; anxiety; rheumatoid arthritis, who presents to the emergency room for worsening shortness of breath and nasal congestion. The patient approximately a week ago was feeling shortness of breath and nasal congestion as well as cough. She was seen at an urgent care visit and prescribed 5 days of azithromycin and ceftriaxone as well as prednisone taper. The patient is still taking the prednisone taper and is on 30 mg today, but she completed the cefdinir and azithromycin yesterday. She initially started feeling better and then started feeling worse yesterday. She has been having productive cough with yellow sputum. Her cough at baseline produces clear sputum generally. She denies fever, chills, chest pain, abdominal pain, nausea, vomiting, or diarrhea. She does have sick contact in that one of her children has cough and nasal congestion. She says that she is prescribed to use p.r.n. oxygen at 4 to 6 L; however, on documentation of Dr. King, I see in 2017, she was prescribed overnight oxygen. The patient tells me she does use her p.r.n. overnight oxygen at 1-2 liters. The patient does continue to smoke despite her COPD diagnosis. She denies any body aches and general malaise. ED COURSE: The patient was ordered ceftriaxone and doxycycline in the emergency department; however, this has not yet been administered at the time of my evaluation. She did receive 1400 mL of normal saline through wide open as well as DuoNeb. PAST MEDICAL HISTORY: 1. COPD with use of 1-2 L oxygen overnight 2. Chronic back pain. 3. History of herniated disks. 4. Rheumatoid arthritis. 5. Anxiety. 6. Polycythemia vera. 7. Carpal tunnel syndrome. PAST SURGICAL HISTORY: 1. Bronchoscopy with bronchoalveolar lavage due to right middle lobe collapse in 2014. 2. Two right knee arthroscopies. 3. Right elbow ORIF. MEDICATIONS: Home medication list: 1. Ventolin inhaler 2 puffs inhaled four times a day p.r.n. shortness of breath /wheezing. 2. Ventolin nebulizer 2.5 mg inhaled q.6 hours p.r.n. shortness of breath/ wheezing. 3. Gabapentin 1200 mg p.o. three times a day. 4. Fluticasone nasal spray, 2 sprays both nares daily. 5. Symbicort 1 puff inhaled daily. 6. Spiriva 2 puffs inhaled daily. 7. Paroxetine 10 mg p.o. daily. 8. Morphine sulfate 60 mg p.o. b.i.d. 9. Prednisone 30 mg x2 days, then 20 mg x2 days, then 10 mg x2 days. 10. Morphine oral concentrate 4 mL p.o. four times a day p.r.n. pain. ALLERGIES: Rash to ADHESIVE TAPE, hives to BENADRYL, rash to IBUPROFEN, itching to LEVOFLOXACIN, hives to PENICILLIN. FAMILY HISTORY: Her parents are overall healthy and both have hypertension. No history of COPD or malignancy in her family. SOCIAL HISTORY: The patient smokes 3 to 4 cigarettes per day, which she is cutting down per her. She denies drug and alcohol use. She lives with her parents and 2 children. She is . The patient's father, Sharad Alvarez, is her surrogate decision maker should she need one. His phone number is . PHYSICAL EXAMINATION GENERAL: Thin, elderly appearing white female, sitting in wheelchair, appearing comfortable, in no acute distress. VITAL SIGNS: Temperature 100.3 temporal, pulse rate 123, respiratory rate 18, oxygen saturation 90% on 6 L, blood pressure /97. HEENT: Eyes: PERRL. Sclerae anicteric. ENT: Mucous membranes moist. LUNGS: Coarse wheeze and bilateral in mid lung mac and lower lung mac. CARDIO: Regular rate and rhythm without murmurs, rubs, or gallops. ABDOMEN: Soft, nontender, and nondistended. EXTREMITIES: No clubbing, cyanosis, or edema. NEURO: The patient is alert and oriented x3. No focal deficits. SKIN: Warm, dry, and intact. DIAGNOSTIC STUDIES/LAB DATA: Chest x-ray: Findings consistent with right middle lobe pneumonia. Hyperinflated lung mac are noted. White blood cell count 12.1, hemoglobin 16.7, hematocrit 50, platelet count 259. Sodium 140, potassium 3.5, chloride 95, carbon dioxide 37, anion gap 8, BUN 9, creatinine 0.68, glucose 172, lactic acid 2.4, calcium 9.1. AST 12, ALT 13, alk phos 95, total bili 0.6. CRP 86.81. Influenza A and B negative. ASSESSMENT AND PLAN: Rasheeda Randhawa is a 44-year-old female with a past medical history significant for chronic obstructive pulmonary disease, chronic pain, anxiety, and rheumatoid arthritis, who presents to the emergency department due to shortness of breath and nasal congestion. The patient will be admitted to [facility] for: 1. Acute on chronic respiratory failure. The patient has a chronic obstructive pulmonary disease exacerbation in the setting of pneumonia. She has failed outpatient therapy of cefdinir and azithromycin. For this reason, I would want to use LEVAQUIN, however, she has a reaction of itching to this as an allergy and therefore I will order doxycycline and cefepime. I have ordered this to be given in the emergency room instead of the ceftriaxone as she had already failed a third generation cephalosporin. I will continue her on steroid at 60 mg. It is possible that she has sepsis secondary to this infection. She does have an elevated lactic acid and tachycardia; however, her leukocytosis likely related to her being on prednisone for several days leading up to this hospitalization. However, she did already receive a fluid bolus. It is difficult to rule out sepsis at this time. I will repeat her lactic acid to ensure that is decreasing with fluids and continue to monitor her. She will get scheduled DuoNebs every 4 hours and her home inhalers will be continued. The patient should likely have outpatient followup with Dr. King. Appears she has not seen Dr. King since her last hospitalization in 2018. 2. Tobacco use. I have ordered the patient a nicotine patch and smoking cessation was discussed. 3. Chronic pain. I will continue the patient's home chronic pain medications of oral concentrate morphine sulfate and gabapentin. 4. Polycythemia vera. The patient does have an elevated hemoglobin of 16.7; however, this is at her baseline. I do not believe any intervention is needed at this time. 5. Anxiety. The patient's home Paxil will be continued. 6. History of rheumatoid arthritis. It does not appear that the patient is on any medication for this at this time. 7. FEN. The patient may have a regular unrestricted diet. Her electrolytes are overall within normal limits. Her carbon dioxide is minimally elevated just likely due to her ongoing chronic obstructive pulmonary disease and we will continue to monitor this. 8. DVT prophylaxis: The patient has a DVT risk score of 2. I have ordered Lovenox. 9. Code status. The patient is full code. TIME SPENT: Approximately 40 minutes was spent. This case has been reviewed by my attending, Dr. Lainey Lux; she agrees with this plan of care. This admission took approximately 50 minutes and approximately half this time was spent at the bedside. WILBER GATICA [id number]/CPS #: [id number] MTDD
[2019-08-31] MEDS: predniSONE TAB* 20 MG PO SCH (20:43)
[2019-08-31] MEDS: Morphine TAB Extended Release (*) 30 MG TAB.ER PO SCH (20:43)
[2019-08-31] MEDS ORDERED: Gabapentin CAP(*) 300 MG PO SCH (21:00)
[2019-08-31] MEDS ORDERED: Nicotine PATCH 7 MG/24 HR* PATCH TRANSDERM SCH (21:01)
[2019-08-31] MEDS: Albuterol/Ipratropium NEB.SOL* Albuterol 2.5 MG/Ipratropium 0.5 MG 3 ML INH SCH ×2 (21:18→23:05)
[2019-08-31] MEDS: Nicotine Patch Removal NOTE FOLLOW UP SCH (22:07)
[2019-08-31] MEDS ORDERED: traZODone TAB* 50 MG TAB PO PRN (22:50)
[2019-08-31] MEDS ORDERED: Gabapentin CAP(*) 300 MG PO ONE (23:00)
[2019-08-31] MEDS: Morphine ORAL.SOLN 10 mg* 2 MG/ML UDC 5 ml PO PRN (23:48)
[2019-09-01] MEDS: Albuterol/Ipratropium NEB.SOL* Albuterol 2.5 MG/Ipratropium 0.5 MG 3 ML INH SCH ×6 (03:10→23:58)
[2019-09-01] MEDS: Cefepime 2 GM in Dextrose(*) 2 GM/50 ML BAG IV SCH (05:21)
[2019-09-01 06:19] LABS: ABS Lymphocytes 0.3 10^3/ul (1.0-4.8); ABS Monocytes 0.1 10^3/ul (0-0.8); ABS Neutrophils 11.2 10^3/ul (1.5-7.7); Hematocrit 43 % (35-47); Hemoglobin 14.3 g/dL (12.0-16.0); Lymphocyte % 2.3 %; Mean Corpuscular HGB Conc 34 g/dL (31-36); Mean Corpuscular Hemoglobin 35 pg (27-31); Mean Corpuscular Volume 104 fL (80-97); Mean Platelet Volume 7.6 fL (7.4-10.4); Platelet Count 212 10^3/uL (150-450); Red Blood Count 4.11 10^6 /uL (3.70-4.87); Red Cell Distribution Width 14 % (10-15); White Blood Count 11.6 10^3/uL (3.5-10.8)
[2019-09-01 06:35] LABS: BUN/Creatinine Ratio 11.1 (8-20); Calcium 8.1 mg/dL (8.6-10.3); EGFR African American 123.6 (>60); EGFR Non-African American 102.2 (>60)
[2019-09-01] MEDS: Mometasone/Formoter 200/5 MDI INH SCH ×3 (07:17→19:32)
[2019-09-01] MEDS: SPIRIVA Respimat* (tiotropium) 2.5 mcg/inh Inhaler INH SCH ×2 (07:17→10:49)
[2019-09-01] MEDS: Morphine ORAL.SOLN 10 mg* 2 MG/ML UDC 5 ml PO PRN ×3 (08:50→19:54)
[2019-09-01] MEDS ORDERED: Pneumococcal *Vac Polyvalent 0.5 ML VIAL IM ONE (09:00)
[2019-09-01] MEDS: Fluticasone NASAL SPRAY 50MCG* 16 gm SPRAY BTL BOTH NARES SCH (09:30)
[2019-09-01] MEDS: DOXYcycline CAP(*) 100 MG PO SCH (09:36)
[2019-09-01] MEDS: PARoxetine HCL TAB* 10 MG PO SCH (09:36)
[2019-09-01] MEDS: Morphine TAB Extended Release (*) 30 MG TAB.ER PO SCH ×2 (09:36→21:34)
[2019-09-01] MEDS: cefTRIAXone(*) 2 GM in NS 0.9% 100 ML* 100 ML IVPB SCH (10:38)
--- NOTE | 2019-09-01 11:55 | PN ---
Subjective Date of Service: 09/01/19 Interval History: Patient without complaints today. Denies fever/chills, dyspnea at rest or with exertion, chest pain, abd pain. Productive cough continues but is becoming more clear. Patient tells me she does feel a little "on edge" because of not having a cigarette but declines nicotine gum and lozenge. Objective Active Medications: Acetaminophen (Tylenol Tab*) 650 mg PO Q4H PRN PRN Reason: MILD PAIN or TEMP > 100.4 Al Hydrox/Mg Hydrox/Simethicone (Maalox Plus*) 30 ml PO Q6H PRN PRN Reason: INDIGESTION Albuterol (Ventolin Hfa Inhaler*) 2 puff INH QID PRN PRN Reason: SHORTNESS OF BREATH Albuterol/Ipratropium (Duoneb (Albuterol 2.5 Mg/Ipratropium 0.5 Mg)) 1 neb INH [id number] [facility] Last Admin: 09/01/19 10:48 Dose: 1 neb Doxycycline Hyclate (Vibramycin Cap(*)) 100 mg PO DAILY [facility] Last Admin: 09/01/19 09:36 Dose: 100 mg Enoxaparin Sodium (Lovenox(*)) 40 mg SUBCUT Q24H [facility] Last Admin: 08/31/19 19:51 Dose: 40 mg Fluticasone Propionate (Flonase Nasal [place] 50mcg*) 2 spray BOTH NARES DAILY [facility] Last Admin: 09/01/19 09:30 Dose: 2 spray Gabapentin (Neurontin Tab(Nf)) 1,200 mg PO TID [facility] Ceftriaxone Sodium 2 gm/ (Sodium Chloride) 100 mls @ 200 mls/hr IVPB Q24H [facility] Last Admin: 09/01/19 10:38 Dose: 200 mls/hr Mometasone Furoate/Formoterol Fumar (Dulera 200/5 Mdi*) 2 puff INH BID [facility]; Protocol Last Admin: 09/01/19 10:49 Dose: 2 puff Morphine Sulfate (Morphine Oral.Soln 10 Mg*) 80 mg PO QID PRN PRN Reason: PAIN - SEVERE Last Admin: 09/01/19 08:50 Dose: 80 mg Morphine Sulfate (Ms Contin(*)) 60 mg PO BID [facility] Last Admin: 09/01/19 09:36 Dose: 60 mg Nicotine (Nicotine Patch 7 Mg/24 Hr*) 1 patch TRANSDERM DAILY [facility] Last Admin: 08/31/19 21:13 Dose: 1 patch Paroxetine HCl (Paxil Tab*) 10 mg PO DAILY [facility] Last Admin: 09/01/19 09:36 Dose: 10 mg Pharmacy Profile Note (Nicotine Patch Removal Note*) 1 note FOLLOW UP 2100 [facility] Last Admin: 08/31/19 22:07 Dose: Not Given Prednisone (Deltasone Tab*) 60 mg PO 1800 [facility] Last Admin: 08/31/19 20:43 Dose: 60 mg Senna (Senokot 8.6 Mg Tab*) 1 tab PO BID PRN PRN Reason: CONSTIPATION Last Admin: 08/31/19 20:44 Dose: 1 tab Tiotropium [place] (Spiriva Respimat 2.5 Mcg) 2 puff INH DAILY [facility] Last Admin: 09/01/19 10:49 Dose: 2 puff Trazodone HCl (Desyrel Tab*) 50 mg PO BEDTIME PRN PRN Reason: INSOMNIA Last Admin: 08/31/19 23:19 Dose: 50 mg Vital Signs - 8 hr 09/01/19 09/01/19 09/01/19 04:13 04:20 07:33 Temperature 98.6 F 97.6 F Pulse Rate 103 75 Respiratory 18 17 Rate Blood Pressure 96/60 108/60 83/43 (mmHg) O2 Sat by Pulse 92 93 Oximetry 09/01/19 09/01/19 09/01/19 07:58 08:00 08:50 Temperature Pulse Rate Respiratory 17 16 Rate Blood Pressure 100/70 (mmHg) O2 Sat by Pulse Oximetry 09/01/19 09/01/19 09/01/19 09:36 10:33 10:52 Temperature 98 F Pulse Rate 94 104 Respiratory 16 13 20 Rate Blood Pressure 105/56 (mmHg) O2 Sat by Pulse 91 90 Oximetry Oxygen Devices in Use Now: Nasal Cannula Appearance: Thin, white female who appears much older than stated age, sitting in hospital chair, appearing comfortable and in NAD Eyes: No Scleral Icterus, - - PERRL Ears/Nose/Mouth/Throat: Mucous Membranes Moist Neck: NL Appearance and Movements; NL JVP Respiratory: Symmetrical Chest Expansion and Respiratory Effort, - - faint wheezing throughout; exam was performed within one hour after duoneb performed; not using accessory muscles with respiration Cardiovascular: NL Sounds; No Murmurs; No JVD, RRR Abdominal: - - abd soft, nontender, nondistended Result Diagrams: 09/01/19 06:06 09/01/19 06:08 Microbiology and Other Data: Microbiology 09/01/19 09:17 Legionella Urinary Antigen - Final Urine Negative Legionella Antigen Streptococcus pneumoniae Ag Screen - Final Negative S. pneumo Antigen 08/31/19 19:03 Gram Stain - Final Sputum Assess/Plan/Problems-Billing Assessment: 44 yo female with PMHx COPD, RA, chronic back pain, anxiety, and PCV presents with productive cough and worsening dyspnea after already taking 5d of prednisone, cefdinir, and azithromycin outpatient. - Patient Problems (1) Acute and chronic respiratory failure Current Visit: Yes Status: Acute Code(s): J96.20 - ACUTE AND CHR RESP FAILURE, UNSP W HYPOXIA OR HYPERCAPNIA SNOMED Code(s): 78285941 Comment: -patient typically requires 1-2 L oxygen at night and prn use of oxygen during the day infrequently -oxygen up to 6L in ED at presentation -COPD exacerbation 2/2 pneumonia -continue home inhalers, scheduled duonebs, prednisone -oxygen down to 4L today, will attempt to wean as tolerated -elevated lactic acid has resolved today, was likely due to increased oxygen requirement. Hypercapnia improved as well (2) Pneumonia Current Visit: No Status: Acute Code(s): J18.9 - PNEUMONIA, UNSPECIFIED ORGANISM SNOMED Code(s): 189218777 Comment: -CXR demonstrates right middle lobe pneumonia -received 5d cefdinir and azithromycin outpatient, but presented with increasing oxygen requirements -changed antibiotics from cefepime to ceftriaxone today given initial sputum culture read concerning for strep pneumniae; full culture pending -urine antigens negative -continue doxycycline -afebrile (3) Tachycardia Current Visit: Yes Status: Acute Code(s): R00.0 - TACHYCARDIA, UNSPECIFIED SNOMED Code(s): 0232841 Comment: -EKG demonstrates sinus tachycardia -likely related to infection -will give IVF and monitor (4) Rheumatoid arthritis Current Visit: Yes Status: Acute Code(s): M06.9 - RHEUMATOID ARTHRITIS, UNSPECIFIED SNOMED Code(s): 31094260 Comment: -doesn't take medications at home -stable (5) Anxiety Current Visit: Yes Status: Acute Code(s): F41.9 - ANXIETY DISORDER, UNSPECIFIED SNOMED Code(s): 23026665 Comment: -continue home paxil (6) Chronic pain Current Visit: No Status: Acute Code(s): G89.29 - OTHER CHRONIC PAIN SNOMED Code(s): 28416722 Comment: -takes chronic high doses of morphine at home and gabapentin for chronic back pain -continue (7) Polycythemia vera Current Visit: No Status: Acute Code(s): D45 - POLYCYTHEMIA VERA SNOMED Code(s): 433743942 Comment: -H&H wnl today (8) Tobacco use Current Visit: Yes Status: Acute Code(s): Z72.0 - TOBACCO USE SNOMED Code( s): 557241478 Comment: -discussed smoking cessation -continue nicotine patch -declines nicotine lozenge/gum (9) DVT prophylaxis Current Visit: No Status: Acute Code(s): ADD0131 - SNOMED Code(s): 586133418 Comment: -lovenox (10) Full code status Current Visit: Yes Status: Acute Code(s): Z78.9 - OTHER SPECIFIED HEALTH STATUS SNOMED Code(s): 696614090 Status and Disposition: pending medical improvement. Anticipate d/c home when stable.
[2019-09-01] MEDS: NS 0.9% 1000 ML** 1,000 ML IV SCH ×2 (12:09→20:30)
[2019-09-01] MEDS ORDERED: Gabapentin CAP(*) 300 MG PO SCH (13:00)
[2019-09-01] MEDS: Gabapentin CAP(*) 400 MG PO SCH ×2 (14:04→21:35)
[2019-09-01] MEDS ORDERED: Simethicone TAB* 80 MG TAB.CHEW PO PRN (18:54)
[2019-09-01] MEDS: Enoxaparin(*) 40 MG/0.4 ML SYR SUBCUT SCH (19:44)
[2019-09-01] MEDS: predniSONE TAB* 20 MG PO SCH (19:44)
[2019-09-01] MEDS ORDERED: Gabapentin CAP(*) 400 MG PO SCH (21:00)
[2019-09-01] MEDS: Nicotine Patch Removal NOTE FOLLOW UP SCH (21:37)
[2019-09-01] MEDS ORDERED: Nicotine PATCH 7 MG/24 HR* PATCH TRANSDERM SCH (22:30)
[2019-09-02] MEDS: Albuterol/Ipratropium NEB.SOL* Albuterol 2.5 MG/Ipratropium 0.5 MG 3 ML INH SCH ×2 (04:31→07:00)
[2019-09-02] MEDS: NS 0.9% 1000 ML** 1,000 ML IV SCH (04:41)
[2019-09-02] MEDS: Morphine ORAL.SOLN 10 mg* 2 MG/ML UDC 5 ml PO PRN ×2 (04:42→10:36)
[2019-09-02] MEDS: SPIRIVA Respimat* (tiotropium) 2.5 mcg/inh Inhaler INH SCH (06:59)
[2019-09-02] MEDS: Mometasone/Formoter 200/5 MDI INH SCH (07:00)
[2019-09-02] MEDS: Morphine TAB Extended Release (*) 30 MG TAB.ER PO SCH (07:57)
[2019-09-02] MEDS: Gabapentin CAP(*) 400 MG PO SCH (07:57)
[2019-09-02] MEDS: PARoxetine HCL TAB* 10 MG PO SCH (07:57)
[2019-09-02] MEDS: DOXYcycline CAP(*) 100 MG PO SCH (07:57)
[2019-09-02] MEDS: Fluticasone NASAL SPRAY 50MCG* 16 gm SPRAY BTL BOTH NARES SCH (07:59)
[2019-09-02] MEDS: cefTRIAXone(*) 2 GM in NS 0.9% 100 ML* 100 ML IVPB SCH (07:59)
[2019-09-02 11:45] VITALS: BP 118/56
[2019-09-02] MEDS ORDERED: Albuterol/Ipratropium NEB.SOL* Albuterol 2.5 MG/Ipratropium 0.5 MG 3 ML INH SCH (13:00)
--- NOTE | 2019-09-02 22:45 | DS ---
CC: Dr. Shannon * DISCHARGE SUMMARY: DATE OF ADMISSION: 08/31/19 DATE OF DISCHARGE AGAINST MEDICAL ADVICE: 09/02/19 PROVIDER: WILBER Gatica. ATTENDING PHYSICIAN WHILE IN THE HOSPITAL: Dr. Fouzia Blandon * (dictated by WILBER Gatica). PRIMARY CARE PROVIDER: Dr. Shannon. PRIMARY DIAGNOSES: 1. Streptococcus pneumonia. 2. [id number] respiratory failure with hypoxia secondary to chronic obstructive pulmonary disease exacerbation and streptococcus pneumonia. 3. Sinus tachycardia, likely related to acute infection. SECONDARY DIAGNOSES: 1. Chronic obstructive pulmonary disease with the use of 1 to 2 L oxygen overnight. 2. Chronic back pain. 3. History of herniated disks. 4. Rheumatoid arthritis. 5. Anxiety. 6. Polycythemia vera. 7. Carpal tunnel syndrome. 8. Tobacco use. PERTINENT STUDIES/LAB DATA: Chest x-ray on 09/02/19, with right middle lobe pneumonia. EKG from 09/01/19, demonstrates sinus tachycardia, rate 108 beats per minute, normal axis. No evidence of ischemic changes. Sputum culture positive for Streptococcus pneumoniae. Negative for influenza A and B. HISTORY OF PRESENT ILLNESS/HOSPITAL COURSE: Rasheeda Randhawa is a 44-year-old white female with past medical history significant for COPD with use of oxygen overnight, tobacco use, chronic back pain with chronic opiate use, rheumatoid arthritis, polycythemia vera, and anxiety, who presented to the emergency department on 08/31/19, due to worsening of shortness of breath as well as nasal congestion. She approximately 7 days prior to her presentation to the emergency department presented to an urgent care visit and was prescribed 5 days of cefdinir and azithromycin as well as prednisone taper due to concerns for pneumonia and COPD exacerbation. However, the patient reports that she did start feel better and then after completing these antibiotics, started to feel worse. Please see for further details admitting history and physical read by myself. To briefly summarize her hospital stay, she was initially started on cefepime and doxycycline due to concern for her worsening clinical status in the setting of this short course of outpatient antibiotics. However, this was changed to ceftriaxone once her sputum culture was suspicious for Streptococcus pneumoniae and this was later confirmed. She was continued on antibiotics and did show some improvement as her oxygen requirements on 09/02/19 were 3 L at rest; however, with nebulization, she is requiring 6 L to maintain her oxygen saturations over 80%. The patient did have tachycardia that improved with IV hydration; however, this did fluctuate, but the patient was not symptomatic of this. On 09/02/19, the patient wanted to go home. She was advised that staying for an additional stay of IV antibiotics as well as monitoring of her cardiopulmonary status would be beneficial for her safety. The patient was clinically sober, free from injury and had intact insight and judgment to have capacity to make decisions. Despite my explanation of benefits of her staying and the risk of worsening infection, worsening clinical status and possible , she still elected to leave against medical advice. She did inform me that her parents checked her home oxygen concentrator and it had the capacity to go up to 6 L at home. During her hospital stay, her home medications were continued. She did receive a pneumococcal 23-polyvalent vaccination. She was afebrile during the majority of her hospital stay and she did have a minimal leukocytosis; however, this was likely related to her steroid use. She was scheduled DuoNebs during her hospital stay and started on 60 mg of prednisone as well as continuing her normal COPD inhalers. PHYSICAL EXAMINATION: General: Thin, white female, who appears much older than stated age, sitting in hospital chair, appearing comfortable, in no acute distress. Eyes: PERRL. Sclerae anicteric. ENT: Mucous membranes are moist. Lungs: Clear to auscultation throughout. No use of accessory muscles with respirations. Cardio: Regular rate and rhythm without murmurs, rubs or gallops. Abdomen: Soft, nontender, nondistended. Extremities: No clubbing, cyanosis or edema. Neuro: The patient is alert and oriented x3. No focal deficits. Able to move all extremities. Skin: Warm, dry, and intact. DISCHARGE PLAN: Diet: Regular, unrestricted diet. Activity: May return to her regular activity as tolerated with the use of 6 L of oxygen with activity and 3 L of oxygen at rest. The patient is advised to please follow up with Dr. Shannon in 1 to 3 days. At this time, Dr. Shannon should reassess the patient's oxygen requirements and these can be adjusted as needed. I do suspect that her oxygen requirements will eventually return to her baseline with ongoing medical therapy; however, this may will likely take some time and I did discuss this with this patient. She was advised to follow up with Dr. King in 2 to 4 weeks as she has not seen her in consultation in over 2 years. The patient was advised to please return to the hospital if she is experiencing fever, chills, shortness of breath , chest pain, additional changes in her sputum, hemoptysis or any other concerning symptoms. She is advised when to start her antibiotics and to continue until completion. DISCHARGE MEDICATIONS: New Medications: 1. DuoNeb 1 neb inhaled q.6 hours p.r.n. 2. Cefdinir 300 mg p.o. b.i.d. x3 days. 3. Nicotine patch 7 mg per 24-hour 1 patch transdermally daily. 4. Doxycycline 100 mg p.o. daily x7 days. 5. Prednisone 60 mg x2 days, 50 mg x3 days, 40 mg x3 days, 30 mg x3 days, 20 mg x3 days, 10 mg x3 days, and discontinue. Continued home medications: 1. Morphine oral concentrate 4 mL p.o. four times a day p.r.n. severe pain. 2. Morphine sulfate 60 mg p.o. b.i.d. 3. Paxil 10 mg p.o. daily. 4. Spiriva 2 puffs inhaled daily. 5. Fluticasone nasal spray, 2 sprays both nares daily. 6. Ventolin nebulized inhaler 2.5 mg inhaled q.6 hours p.r.n. shortness of breath/wheezing. 7. Ventolin inhaler 2 puffs inhaled four times a day p.r.n. shortness of breath /wheezing. 8. Symbicort 2 puffs inhaled b.i.d. 9. Gabapentin 1200 mg p.o. t.i.d. CONDITION ON DISCHARGE: Guarded. DISPOSITION AGAINST MEDICAL ADVICE: To home. TIME SPENT: Approximately 45 minutes were spent on this discharge, approximately half that time was spent at bedside evaluating the patient, discussing the plan of care, and discussing the risks of leaving against medical advice. WILBER GATICA [id number]/[id number] #: [id number] MTDD
== END 2019-09-02 13:00 | disposition left against medical advice (07) | DRG 139 ==
LOC: ED 14:19 → MED 17:43
PROVIDERS: ADMIT Internal Medicine; ATTEND Internal Medicine
DX: J15.4 Pneumonia due to other streptococci (principal); J96.21 Acute and chronic respiratory failure with hypoxia; J44.0 Chronic obstructive pulmonary disease with (acute) lower respiratory infection; J44.1 Chronic obstructive pulmonary disease with (acute) exacerbation; Z99.81 Dependence on supplemental oxygen; R00.0 Tachycardia, unspecified; G89.29 Other chronic pain; M06.9 Rheumatoid arthritis, unspecified; F41.9 Anxiety disorder, unspecified; D45 Polycythemia vera; G56.00 Carpal tunnel syndrome, unspecified upper limb; F17.210 Nicotine dependence, cigarettes, uncomplicated; Z79.891 Long term (current) use of opiate analgesic; Z79.51 Long term (current) use of inhaled steroids; Z79.52 Long term (current) use of systemic steroids; Z79.899 Other long term (current) drug therapy; Z88.6 Allergy status to analgesic agent; Z88.1 Allergy status to other antibiotic agents; Z88.0 Allergy status to penicillin; Z91.048 Other nonmedicinal substance allergy status; Z82.49 Family history of ischemic heart disease and other diseases of the circulatory system
CPT/HCPCS: 36415; 71046; 80048; 80053; 83605; 85025; 86140; 87070; 87077; 87184; 87186; 87205; 87899; 90732; 93005; 94640; 99284; A9270-GY; J0692; J0696; J1650; J3535; J7512

== ENCOUNTER 2022-07-08 17:23 | Inpatient (IN) ==
[2022-07-08] MEDS ORDERED: Dexamethasone IV 4 MG/ML VIAL 1 ml VIAL IV SLOW PU ONE (18:34)
[2022-07-08] MEDS ORDERED: Albuterol HFA INHALER 8 gm MDI INH ONE (18:34)
[2022-07-08 18:39] LABS: ABS Lymphocytes 0.6 10^3/ul (1.0-4.8); ABS Monocytes 0.4 10^3/ul (0-0.8); ABS Neutrophils 5.3 10^3/ul (1.5-7.7); Hematocrit 54 % (35-47); Hemoglobin 17.9 g/dL (12.0-16.0); Lymphocyte % 9.6 %; Mean Corpuscular HGB Conc 33 g/dL (31-36); Mean Corpuscular Hemoglobin 34 pg (27-31); Mean Corpuscular Volume 104 fL (80-97); Nucleated Red Blood Cells % 0.2; Platelet Count 124 10^3/uL (150-450); Red Cell Distribution Width 15 % (10-15); White Blood Count 6.3 10^3/uL (3.5-10.8)
[2022-07-08 18:57] LABS: INR 1.16 (0.89-1.11)
[2022-07-08 19:06] LABS: High Sens Troponin Baseline 3 pg/mL (<15)
[2022-07-08 19:09] LABS: ALT 7 U/L (7-52); AST 12 U/L (13-39); Albumin 3.6 g/dL (3.2-5.2); Alkaline Phosphatase 71 U/L (35-149); Anion Gap 11 mmol/L (2-11); Blood Urea Nitrogen 10 mg/dL (6-24); CO2 Carbon Dioxide 30 mmol/L (22-32); Calcium 8.3 mg/dL (8.6-10.3); Chloride 100 mmol/L (101-111); Globulin 1.8 g/dL (2-4); Glucose 90 mg/dL (70-100); Potassium 3.8 mmol/L (3.5-5.0); Sodium 141 mmol/L (135-145); Total Protein 5.4 g/dL (6.4-8.9); eGFR CKD-EPI 110.7 (>60)
[2022-07-08 19:20] LABS: PCO2 Arterial 42 mmHg (35-45); PO2 Arterial 63 mmHg (80-100)
[2022-07-08 20:00] LABS: High Sensitivity Troponin 1 Hr 4 pg/mL (<15)
[2022-07-08 21:11] LABS: Urine Appearance Clear; Urine Bilirubin Negative (Negative); Urine Blood Negative (Negative); Urine Color Yellow; Urine Glucose Negative (Negative); Urine Ketones 2+ (Negative); Urine Nitrite Negative (Negative); Urine Protein 2+(100 mg/dL) (Negative); Urine Specific Gravity 1.024 (1.002-1.030); Urine Urobilinogen Positive (Negative)
[2022-07-08 21:19] LABS: Urine Bacteria Absent (Absent); Urine Red Blood Cell Absent (Absent); Urine Squamous Epithelial Cell Present (Absent); Urine White Blood Cell Absent (Absent)
[2022-07-08 21:39] LABS: Urine Benzodiazepine Screen None Detected (None Detect); Urine Cannabinoids Screen None Detected (None Detect); Urine Opiates Screen Presumptive Positive (None Detect)
[2022-07-08 23:00] LABS: Alcohol, S < 13 mg/dL (<13)
[2022-07-08] MEDS ORDERED: Albuterol HFA INHALER 8 gm MDI INH PRN (23:41)
[2022-07-08] MEDS ORDERED: Albuterol 2.5mg/3 ml (0.083%) NEB.SOLN INH PRN (23:42)
[2022-07-08] MEDS ORDERED: NS 0.9% 1000 ml BAG 1,000 ML IV SCH (23:45)
[2022-07-09] MEDS: cefTRIAXone 1 gm/50 mL D5W 1 GM/50 ML BAG IV SCH (00:22)
[2022-07-09] MEDS: Enoxaparin 40 MG/0.4 ML SYR SUBCUT SCH ×2 (00:23→20:48)
[2022-07-09] MEDS ORDERED: Albuterol/Ipratropium NEB.SOL (2.5/0.5 MG) 3 ML NEB.SOLN INH PRN (00:25)
[2022-07-09] MEDS: Azithromycin 500 mg/250 ml NS 500 MG/250 ML BAG IVPB SCH (01:10)
[2022-07-09 01:42] LABS: Magnesium 1.4 mg/dL (1.9-2.7)
[2022-07-09] MEDS: Albuterol HFA INHALER 8 gm MDI INH SCH ×6 (01:58→22:49)
[2022-07-09] MEDS ORDERED: Magnesium Sulf 4 GM/100 ML IV 4,000 MG/100 ML BAG IVPB ONE (02:11)
[2022-07-09 04:53] LABS: ABS Lymphocytes 0.3 10^3/ul (1.0-4.8); ABS Monocytes 0.1 10^3/ul (0-0.8); ABS Neutrophils 3.8 10^3/ul (1.5-7.7); Hematocrit 53 % (35-47); Hemoglobin 17.5 g/dL (12.0-16.0); Lymphocyte % 8.1 %; Mean Corpuscular HGB Conc 33 g/dL (31-36); Mean Corpuscular Hemoglobin 34 pg (27-31); Mean Corpuscular Volume 104 fL (80-97); Mean Platelet Volume 8.3 fL (7.4-10.4); Platelet Count 123 10^3/uL (150-450); Red Cell Distribution Width 15 % (10-15); White Blood Count 4.2 10^3/uL (3.5-10.8)
[2022-07-09 04:58] LABS: Albumin/Globulin Ratio 1.9 (1-3); Calcium 9.7 mg/dL (8.6-10.3); Globulin 2.1 g/dL (2-4); Magnesium 3.4 mg/dL (1.9-2.7); Potassium 4.2 mmol/L (3.5-5.0); Total Bilirubin 1.3 mg/dL (0.2-1.0); Total Protein 6.1 g/dL (6.4-8.9)
[2022-07-09 08:54] LABS: Large Platelets Present
[2022-07-09] MEDS: SPIRIVA Respimat (tiotropium) 2.5 mcg/inh Inhaler INH SCH (12:28)
[2022-07-10] MEDS: cefTRIAXone 1 gm/50 mL D5W 1 GM/50 ML BAG IV SCH (00:21)
[2022-07-10] MEDS: Azithromycin 500 mg/250 ml NS 500 MG/250 ML BAG IVPB SCH (01:27)
[2022-07-10] MEDS: Albuterol HFA INHALER 8 gm MDI INH SCH ×5 (03:02→19:02)
[2022-07-10] MEDS ORDERED: Prochlorperazine 5 mg/ml 2 ml VIAL (10 mg) IV ONE (05:47)
[2022-07-10] MEDS ORDERED: Lorazepam PYXIS KEY ONE ×3 (06:58→07:13)
[2022-07-10] MEDS ORDERED: Lorazepam PYXIS KEY PRN ×3 (07:00→07:19)
[2022-07-10] MEDS ORDERED: LORazepam 2 mg VIAL 1 ml ONE ×3 (07:00→07:13)
[2022-07-10] MEDS ORDERED: levETIRAcetam 1000MG IVPREMIX 1,000 MG/100 ML BAG IVPB ONE ×2 (07:00→07:17)
[2022-07-10] MEDS ORDERED: LORazepam 2 mg VIAL 1 ml IV PUSH ONE ×3 (07:00→07:19)
[2022-07-10] MEDS ORDERED: Propofol 10 MG/ML 20 ML BTL IV PUSH PRN ×2 (07:20→07:22)
[2022-07-10] MEDS ORDERED: Propofol 10 mg/ml 100 ML BTL 100 ML ONE (07:21)
[2022-07-10] MEDS ORDERED: Rocuronium 50 mg VIAL 10 mg/ml 5 ml VIAL (50 mg) ONE (07:21)
[2022-07-10] MEDS ORDERED: Succinylcholine 200 mg VIAL 20 mg/ml 10 ml VIAL (200 mg) ONE (07:21)
[2022-07-10] MEDS ORDERED: Etomidate 40 mg/20 ml (2 MG/ML) 20 ml VIAL (40 mg) ONE (07:23)
[2022-07-10] MEDS: Propofol 10 mg/ml 100 ML BTL 100 ML IV SCH ×2 (07:25→13:53)
[2022-07-10] MEDS ORDERED: Etomidate 20 mg/10 ml 2 MG/ML 10 ml VIAL IV ONE (07:26)
[2022-07-10] MEDS ORDERED: Succinylcholine 200 mg VIAL 20 mg/ml 10 ml VIAL (200 mg) IV ONE (07:26)
[2022-07-10 07:38] LABS: Hematocrit 53 % (35-47); Hemoglobin 18.2 g/dL (12.0-16.0); Mean Corpuscular HGB Conc 35 g/dL (31-36); Mean Corpuscular Hemoglobin 35 pg (27-31); Mean Corpuscular Volume 102 fL (80-97); Mean Platelet Volume 8.2 fL (7.4-10.4); Platelet Count 130 10^3/uL (150-450); Red Blood Count 5.15 10^6 /uL (3.70-4.87); Red Cell Distribution Width 15 % (10-15)
[2022-07-10] MEDS ORDERED: cefTRIAXone 2 gm/50 mL D5W 2 GM/50 ML BAG IV SCH (07:45)
[2022-07-10 07:46] LABS: Calcium 9.5 mg/dL (8.6-10.3); Magnesium 1.8 mg/dL (1.9-2.7); Potassium 3.6 mmol/L (3.5-5.0); eGFR CKD-EPI 103.1 (>60)
[2022-07-10] MEDS ORDERED: Midazolam 2 mg/2 ml VIAL 1 mg/ml 2 ml VIAL (2 mg) IV SLOW PU ONE ×2 (07:55→09:13)
[2022-07-10] MEDS ORDERED: Acetaminophen IV 1 GM/100ML 1,000 MG/100 ML BAG IV PRN (08:00)
[2022-07-10] MEDS: Midazolam 5 mg/5 ml VIAL 1 mg/ml 5 ml VIAL (5 mg) ONE ×2 (08:22→08:41)
[2022-07-10] MEDS: SPIRIVA Respimat (tiotropium) 2.5 mcg/inh Inhaler INH SCH (08:27)
[2022-07-10] MEDS ORDERED: Vancomycin 750 MG in NS 0.9% 250 ml 250 ML IVPB ONE (08:30)
[2022-07-10 08:34] LABS: ABS Lymphocytes 0.7 10^3/ul (1.0-4.8); ABS Monocytes 0.7 10^3/ul (0-0.8); ABS Neutrophils 9.7 10^3/ul (1.5-7.7); Hematocrit 52 % (35-47); Hemoglobin 17.6 g/dL (12.0-16.0); Mean Corpuscular HGB Conc 34 g/dL (31-36); Mean Corpuscular Hemoglobin 35 pg (27-31); Mean Corpuscular Volume 103 fL (80-97); Mean Platelet Volume 8.8 fL (7.4-10.4); Nucleated Red Blood Cells % 0.1; Platelet Count 160 10^3/uL (150-450); Red Blood Count 5.07 10^6 /uL (3.70-4.87); Red Cell Distribution Width 15 % (10-15); White Blood Count 11.1 10^3/uL (3.5-10.8)
[2022-07-10 08:47] LABS: ABS Lymphocytes 0.5 10^3/ul (1.0-4.8); ABS Monocytes 0.6 10^3/ul (0-0.8); ABS Neutrophils 6.8 10^3/ul (1.5-7.7); Lymphocyte % 6.7 %; Nucleated Red Blood Cells % 0.1
[2022-07-10] MEDS ORDERED: Valproic Acid IV 2,000 MG in NS 0.9% 100 ml BAG 100 ML IVPB ONE (08:47)
[2022-07-10] MEDS: Chlorhexidine MOUTHWASH 0.12% 15 ML UDC TOPICAL SCH ×3 (08:53→16:33)
[2022-07-10 08:56] LABS: ALT 11 U/L (7-52); Albumin 4.2 g/dL (3.2-5.2); Albumin/Globulin Ratio 2.1 (1-3); Alkaline Phosphatase 72 U/L (35-149); Blood Urea Nitrogen 25 mg/dL (6-24); CO2 Carbon Dioxide 24 mmol/L (22-32); Calcium 9.5 mg/dL (8.6-10.3); Chloride 99 mmol/L (101-111); Creatine Kinase 117 U/L (10-223); Glucose 131 mg/dL (70-100); Magnesium 1.9 mg/dL (1.9-2.7); Sodium 140 mmol/L (135-145); Total Protein 6.2 g/dL (6.4-8.9); eGFR CKD-EPI 82.1 (>60)
[2022-07-10] MEDS ORDERED: DOXYcycline 100 MG in NS 0.9% 250 ml 250 ML IVPB SCH (09:00)
[2022-07-10] MEDS ORDERED: Pantoprazole VIAL 40 MG VIAL IV SCH (09:00)
[2022-07-10 09:12] LABS: PCO2 Arterial 40 mmHg (35-45); PO2 Arterial 100 mmHg (80-100)
[2022-07-10] MEDS ORDERED: Midazolam 2 mg/2 ml VIAL 1 mg/ml 2 ml VIAL (2 mg) ONE (09:13)
[2022-07-10 09:41] LABS: Anion Gap 17 mmol/L (2-11)
[2022-07-10] MEDS ORDERED: Lidocaine 1% VIAL 10 MG/ML VIAL 30 ML ONE (10:04)
[2022-07-10 11:07] LABS: Body Fluid Source Cerebral Spinal
[2022-07-10 11:22] LABS: CSF Glucose 81 mg/dL (40-70)
[2022-07-10 11:55] LABS: Body Fluid Appearance Clear; Body Fluid Mono 44 %; Body Fluid Total Cells Counted 9
[2022-07-10 11:56] LABS: Body Fluid Color Colorless; CSF Tube # 4
[2022-07-10] MEDS: Acyclovir IV 450 MG in NS 0.9% 100 ml BAG 100 ML IVPB SCH ×2 (11:56→18:14)
[2022-07-10 11:57] LABS: Body Fluid WBC 6 /mcL
[2022-07-10] MEDS ORDERED: fentaNYL INFUSION 50 mcg/mL VL 2,500 MCG/50 ML VIAL IV SCH (12:00)
[2022-07-10] MEDS ORDERED: Midazolam 50 MG VIAL IV DRIP 50 ML IV SCH (13:00)
[2022-07-10] MEDS ORDERED: levETIRAcetam 1000MG IVPREMIX 1,000 MG/100 ML BAG IVPB SCH (13:00)
[2022-07-10 13:53] LABS: Urine Appearance Turbid; Urine Bilirubin Negative (Negative); Urine Blood Negative (Negative); Urine Color Yellow; Urine Glucose Negative (Negative); Urine Ketones 1+ (Negative); Urine Nitrite Negative (Negative); Urine Protein Negative (Negative); Urine Specific Gravity 1.033 (1.002-1.030); Urine Urobilinogen Negative (Negative)
[2022-07-10] MEDS ORDERED: Vancomycin per Pharmacy 1 EA NOTE FOLLOW UP PRN (14:32)
[2022-07-10] MEDS: Midazolam 2 mg/2 ml VIAL 1 mg/ml 2 ml VIAL (2 mg) IV SLOW PU SCH ×2 (15:03→16:33)
[2022-07-10] MEDS ORDERED: Gadoteridol (CONTRAST) 279.3 MG/ML 10 ML IV ONE (15:47)
[2022-07-10 20:00] VITALS: BP 117/83
[2022-07-10] MEDS ORDERED: Vancomycin 750 MG in NS 0.9% 250 ML IVPB SCH (21:00)
[2022-07-12] MEDS ORDERED: Vancomycin Trough Check NOTE FOLLOW UP ONE (08:30)
[2022-07-13 17:03] LABS: HSV 1 PCR, CSF Negative (Negative); HSV 2 PCR, CSF Negative (Negative)
[2022-07-14 16:13] LABS: Varicella Zoster Result Negative (Negative); Varicella Zoster Source CSF
[2022-07-31 10:16] LABS: AGNA-1, CSF Negative titer (<1:2); Amphiphysin Ab, CSF Negative titer (<1:2); CRMP-5-IgG, CSF Negative titer (<1:2); PCA-1, CSF Negative titer (<1:2); PCA-2, CSF Negative titer (<1:2); PCA-Tr, CSF Negative titer (<1:2)
== END 2022-07-10 19:22 | disposition short-term general hospital (02) | DRG 52 ==
LOC: ED 17:23 → SUATTDRO 23:34 → EDHOLD 23:34 → MED 07-09 08:49 → ICU 07-10 07:14
PROVIDERS: ADMIT Hospitalist; ATTEND Student in an Organized Health Care Education/Training Program

== ENCOUNTER 2022-07-18 07:47 | Inpatient (IN) ==
[2022-07-18] MEDS ORDERED: Lactated Ringers 1000 ml BAG 1,000 ML IV ONE ×2 (08:02→10:25)
[2022-07-18 08:24] LABS: ABS Lymphocytes 0.8 10^3/ul (1.0-4.8); ABS Monocytes 0.4 10^3/ul (0-0.8); ABS Neutrophils 5.1 10^3/ul (1.5-7.7); Eosinophil % 0.1 %; Hematocrit 52 % (35-47); Hemoglobin 17.5 g/dL (12.0-16.0); Lymphocyte % 11.9 %; Mean Corpuscular HGB Conc 34 g/dL (31-36); Mean Corpuscular Hemoglobin 35 pg (27-31); Mean Corpuscular Volume 105 fL (80-97); Platelet Count 188 10^3/uL (150-450); Red Blood Count 4.94 10^6 /uL (3.70-4.87); Red Cell Distribution Width 14 % (10-15); White Blood Count 6.3 10^3/uL (3.5-10.8)
[2022-07-18 08:35] LABS: Activated Partial Thrombo Time 24.2 seconds (26.0-38.0); INR 0.92 (0.89-1.11)
[2022-07-18 08:46] LABS: High Sens Troponin Baseline 9 pg/mL (<15)
[2022-07-18 08:52] LABS: PCO2 Arterial 38 mmHg (35-45)
[2022-07-18 08:57] LABS: PO2 Arterial 57 mmHg (80-100)
[2022-07-18 09:11] LABS: Albumin 4.1 g/dL (3.2-5.2); Blood Urea Nitrogen 26 mg/dL (6-24); CO2 Carbon Dioxide 29 mmol/L (22-32); Calcium 10.2 mg/dL (8.6-10.3); Chloride 100 mmol/L (101-111); Globulin 2.3 g/dL (2-4); Glucose 125 mg/dL (70-100); Magnesium 1.9 mg/dL (1.9-2.7); Sodium 141 mmol/L (135-145); Total Protein 6.4 g/dL (6.4-8.9); eGFR CKD-EPI 107.7 (>60)
[2022-07-18 09:12] LABS: ALT 16 U/L (7-52); Albumin/Globulin Ratio 1.8 (1-3); Alkaline Phosphatase 89 U/L (35-149); C Reactive Protein 9.61 mg/L (<8.01); Creatine Kinase 86 U/L (10-223)
[2022-07-18 09:21] LABS: Anion Gap 12 mmol/L (2-11)
[2022-07-18 10:08] LABS: High Sensitivity Troponin 1 Hr 10 pg/mL (<15)
[2022-07-18] MEDS ORDERED: methylPREDNISolone SOD SUCC 1000 MG ML VIAL IVPB ONE (10:31)
[2022-07-18] MEDS ORDERED: Iohexol 350 (CONTRAST) 500 ML MDV IV ONE (11:51)
[2022-07-18] MEDS ORDERED: Albuterol/Ipratropium NEB.SOL (2.5/0.5 MG) 3 ML NEB.SOLN INH ONE ×3 (12:08→12:09)
[2022-07-18] MEDS ORDERED: LORazepam 2 mg VIAL 1 ml ONE ×2 (12:44→17:37)
[2022-07-18] MEDS ORDERED: LORazepam 2 mg VIAL 1 ml IV PUSH ONE (12:44)
[2022-07-18] MEDS ORDERED: Lorazepam PYXIS KEY PRN (12:44)
[2022-07-18] MEDS ORDERED: levETIRAcetam 1000MG IVPREMIX 1,000 MG/100 ML BAG IVPB ONE (12:53)
[2022-07-18] MEDS ORDERED: Valproic Acid IV 500 MG in NS 0.9% 100 ml BAG 100 ML IVPB SCH (16:00)
[2022-07-18] MEDS: Enoxaparin 40 MG/0.4 ML SYR SUBCUT SCH (16:10)
[2022-07-18] MEDS ORDERED: Albuterol HFA INHALER 8 gm MDI INH PRN (16:29)
[2022-07-18] MEDS: Lactated Ringers 1000 ml BAG 1,000 ML IV SCH (16:56)
[2022-07-18] MEDS: Valproic Acid IV 500 MG in NS 0.9% 100 ml BAG 100 ML IVPB SCH (17:35)
[2022-07-18] MEDS ORDERED: Lorazepam PYXIS KEY ONE (17:37)
[2022-07-18] MEDS ORDERED: Morphine 2 MG/ML SYRINGE IV SCH (18:00)
[2022-07-18 18:17] LABS: Calcium 9.2 mg/dL (8.6-10.3); Magnesium 1.6 mg/dL (1.9-2.7); Potassium 3.9 mmol/L (3.5-5.0); eGFR CKD-EPI 109.4 (>60)
[2022-07-18 18:22] LABS: Urine Appearance Cloudy; Urine Bilirubin Negative (Negative); Urine Blood Negative (Negative); Urine Color Yellow; Urine Glucose Negative (Negative); Urine Ketones Trace (Negative); Urine Nitrite Negative (Negative); Urine Protein Negative (Negative); Urine Specific Gravity 1.047 (1.002-1.030); Urine Urobilinogen Negative (Negative)
[2022-07-18] MEDS ORDERED: Magnesium Sulfate 2 gm BAG 2 GM/50 ML BAG IVPB ONE (18:38)
[2022-07-18] MEDS: SPIRIVA Respimat (tiotropium) 2.5 mcg/inh Inhaler INH SCH (20:18)
[2022-07-18] MEDS: levETIRAcetam IV 750 MG in NS 0.9% 100 ml BAG 100 ML IVPB SCH (22:09)
[2022-07-19] MEDS ORDERED: Valproic Acid IV 500 MG in NS 0.9% 100 ml BAG 100 ML IVPB SCH
[2022-07-19] MEDS: Valproic Acid IV 500 MG in NS 0.9% 100 ml BAG 100 ML IVPB SCH ×3 (01:18→17:31)
[2022-07-19] MEDS ORDERED: LORazepam 2 mg VIAL 1 ml IV PUSH ONE (01:38)
[2022-07-19] MEDS ORDERED: Lorazepam PYXIS KEY PRN (01:38)
[2022-07-19] MEDS ORDERED: Valproic Acid IV 250 MG in NS 0.9% 100 ml BAG 100 ML IVPB ONE (02:00)
[2022-07-19 05:44] LABS: ABS Lymphocytes 0.9 10^3/ul (1.0-4.8); ABS Monocytes 0.4 10^3/ul (0-0.8); ABS Neutrophils 4.7 10^3/ul (1.5-7.7); Hematocrit 46 % (35-47); Hemoglobin 15.3 g/dL (12.0-16.0); Lymphocyte % 15.7 %; Mean Corpuscular HGB Conc 33 g/dL (31-36); Mean Corpuscular Hemoglobin 35 pg (27-31); Mean Corpuscular Volume 104 fL (80-97); Mean Platelet Volume 9.2 fL (7.4-10.4); Platelet Count 185 10^3/uL (150-450); Red Blood Count 4.39 10^6 /uL (3.70-4.87); Red Cell Distribution Width 14 % (10-15)
[2022-07-19 06:28] LABS: Albumin 3.6 g/dL (3.2-5.2); Total Bilirubin 0.9 mg/dL (0.2-1.0)
[2022-07-19 06:34] LABS: Albumin/Globulin Ratio 1.7 (1-3); Globulin 2.1 g/dL (2-4); Potassium 4.8 mmol/L (3.5-5.0); Total Protein 5.7 g/dL (6.4-8.9); eGFR CKD-EPI 113.5 (>60)
[2022-07-19] MEDS: SPIRIVA Respimat (tiotropium) 2.5 mcg/inh Inhaler INH SCH (07:35)
[2022-07-19] MEDS: Pantoprazole VIAL 40 MG VIAL IV SCH (09:26)
[2022-07-19] MEDS ORDERED: methylPREDNISolone SOD SUCC 1,000 MG in NS 0.9% 100 ml BAG 100 ML IVPB ONE (10:30)
[2022-07-19] MEDS ORDERED: methylPREDNISolone SOD SUCC 1,000 MG in NS 0.9% 250 ml 250 ML IVPB SCH (10:30)
[2022-07-19] MEDS ORDERED: Iohexol 350 (CONTRAST) 500 ML MDV IV ONE (10:55)
[2022-07-19 12:05] LABS: Rheumatoid Factor < 10 IU/mL (<15)
[2022-07-19 12:23] LABS: Thyroid Peroxidase Antibodies 1.97 IU/mL (<9)
[2022-07-19] MEDS ORDERED: Gadoteridol (CONTRAST) 279.3 MG/ML 10 ML IV ONE (13:25)
[2022-07-19] MEDS ORDERED: methylPREDNISolone SOD SUCC 1,000 MG in NS 0.9% 100 ml BAG 100 ML IVPB SCH (14:00)
[2022-07-19] MEDS: levETIRAcetam IV 750 MG in NS 0.9% 100 ml BAG 100 ML IVPB SCH (14:43)
[2022-07-19] MEDS: Lactated Ringers 1000 ml BAG 1,000 ML IV SCH (14:43)
[2022-07-19] MEDS: Enoxaparin 40 MG/0.4 ML SYR SUBCUT SCH (17:30)
[2022-07-19 21:03] LABS: PCO2 Arterial 34 mmHg (35-45); PO2 Arterial 62 mmHg (80-100)
[2022-07-20] MEDS: Valproic Acid IV 500 MG in NS 0.9% 100 ml BAG 100 ML IVPB SCH ×2 (00:38→11:12)
[2022-07-20] MEDS: levETIRAcetam IV 750 MG in NS 0.9% 100 ml BAG 100 ML IVPB SCH ×2 (00:45→11:55)
[2022-07-20 04:54] LABS: ABS Lymphocytes 1.2 10^3/ul (1.0-4.8); ABS Monocytes 0.3 10^3/ul (0-0.8); ABS Neutrophils 3.7 10^3/ul (1.5-7.7); Hematocrit 45 % (35-47); Hemoglobin 15.3 g/dL (12.0-16.0); Lymphocyte % 23.3 %; Mean Corpuscular HGB Conc 34 g/dL (31-36); Mean Corpuscular Hemoglobin 35 pg (27-31); Mean Corpuscular Volume 103 fL (80-97); Mean Platelet Volume 8.8 fL (7.4-10.4); Nucleated Red Blood Cells % 0.1; Platelet Count 181 10^3/uL (150-450); Red Blood Count 4.42 10^6 /uL (3.70-4.87); Red Cell Distribution Width 14 % (10-15); White Blood Count 5.3 10^3/uL (3.5-10.8)
[2022-07-20 06:51] LABS: ALT 12 U/L (7-52); Albumin 2.9 g/dL (3.2-5.2); Albumin/Globulin Ratio 1.7 (1-3); Alkaline Phosphatase 54 U/L (35-149); Blood Urea Nitrogen 19 mg/dL (6-24); CO2 Carbon Dioxide 25 mmol/L (22-32); Calcium 7.4 mg/dL (8.6-10.3); Chloride 101 mmol/L (101-111); Globulin 1.7 g/dL (2-4); Glucose 74 mg/dL (70-100); Sodium 135 mmol/L (135-145); Total Protein 4.6 g/dL (6.4-8.9); eGFR CKD-EPI 121.3 (>60)
[2022-07-20 06:58] LABS: Anion Gap 9 mmol/L (2-11)
[2022-07-20] MEDS: SPIRIVA Respimat (tiotropium) 2.5 mcg/inh Inhaler INH SCH (08:07)
[2022-07-20 10:35] LABS: Vitamin B12 501 pg/mL (180-914)
[2022-07-20] MEDS ORDERED: Polyethylene Glycol 3350 17 GM PACKET FEED TUBE PRN (11:24)
[2022-07-20] MEDS: Pantoprazole VIAL 40 MG VIAL IV SCH (11:44)
[2022-07-20] MEDS: Valproic Acid LIQ 250 MG/5 ML UDC NG TUBE SCH ×2 (12:03→18:20)
[2022-07-20] MEDS: Enoxaparin 40 MG/0.4 ML SYR SUBCUT SCH (15:55)
[2022-07-21] MEDS: levETIRAcetam IV 750 MG in NS 0.9% 100 ml BAG 100 ML IVPB SCH ×2 (01:04→12:28)
[2022-07-21] MEDS: Valproic Acid LIQ 250 MG/5 ML UDC NG TUBE SCH ×3 (01:20→17:41)
[2022-07-21 03:31] LABS: Hematocrit 50 % (35-47); Hemoglobin 16.7 g/dL (12.0-16.0); Mean Corpuscular HGB Conc 33 g/dL (31-36); Mean Corpuscular Hemoglobin 35 pg (27-31); Mean Corpuscular Volume 104 fL (80-97); Red Blood Count 4.82 10^6 /uL (3.70-4.87); Red Cell Distribution Width 14 % (10-15); White Blood Count 7.7 10^3/uL (3.5-10.8)
[2022-07-21 04:14] LABS: Calcium 8.8 mg/dL (8.6-10.3); Magnesium 1.8 mg/dL (1.9-2.7); Phosphorus 2.7 mg/dL (2.5-5.0); Potassium 3.4 mmol/L (3.5-5.0); eGFR CKD-EPI 117.4 (>60)
[2022-07-21 04:48] LABS: ABS Lymphocytes 1.4 10^3/ul (1.0-4.8); ABS Monocytes 0.8 10^3/ul (0-0.8); ABS Neutrophils 5.5 10^3/ul (1.5-7.7); Eosinophil % 0.1 %; Lymphocyte % 18.6 %; Nucleated Red Blood Cells % 0.1; Platelet Count Platelets clumped. 10^3/uL (150-450)
[2022-07-21] MEDS ORDERED: NS 0.9% w/ 20 Meq KCL 1000 ml 1,000 ML IV SCH (08:00)
[2022-07-21] MEDS: Pantoprazole VIAL 40 MG VIAL IV SCH (08:23)
[2022-07-21] MEDS: SPIRIVA Respimat (tiotropium) 2.5 mcg/inh Inhaler INH SCH (08:37)
[2022-07-21] MEDS: Morphine 2 MG/ML SYRINGE IV PRN (11:54)
[2022-07-21 12:35] LABS: Venous Bicarbonate HCO3 32.4 mmol/L (24-28)
[2022-07-21] MEDS: Enoxaparin 40 MG/0.4 ML SYR SUBCUT SCH (15:40)
[2022-07-21] MEDS: Nystatin TOP POWDER 15 GM BTL TOPICAL SCH (22:44)
[2022-07-22] MEDS: levETIRAcetam IV 750 MG in NS 0.9% 100 ml BAG 100 ML IVPB SCH ×2 (00:28→15:52)
[2022-07-22] MEDS: Valproic Acid LIQ 250 MG/5 ML UDC NG TUBE SCH ×3 (01:50→20:51)
[2022-07-22 06:01] LABS: ABS Lymphocytes 1.2 10^3/ul (1.0-4.8); ABS Monocytes 0.7 10^3/ul (0-0.8); ABS Neutrophils 3.9 10^3/ul (1.5-7.7); Eosinophil % 0.3 %; Hematocrit 44 % (35-47); Hemoglobin 14.9 g/dL (12.0-16.0); Lymphocyte % 20.2 %; Mean Corpuscular HGB Conc 34 g/dL (31-36); Mean Corpuscular Hemoglobin 35 pg (27-31); Mean Corpuscular Volume 103 fL (80-97); Mean Platelet Volume 9.2 fL (7.4-10.4); Platelet Count 173 10^3/uL (150-450); Red Blood Count 4.31 10^6 /uL (3.70-4.87); Red Cell Distribution Width 14 % (10-15); White Blood Count 5.8 10^3/uL (3.5-10.8)
[2022-07-22 06:18] LABS: Calcium 8.5 mg/dL (8.6-10.3); Magnesium 1.8 mg/dL (1.9-2.7); Phosphorus 3.1 mg/dL (2.5-5.0); Potassium 3.5 mmol/L (3.5-5.0); eGFR CKD-EPI 117.4 (>60)
[2022-07-22] MEDS ORDERED: Magnesium Sulfate 2 gm BAG 2 GM/50 ML BAG IVPB ONE (07:07)
[2022-07-22] MEDS: SPIRIVA Respimat (tiotropium) 2.5 mcg/inh Inhaler INH SCH (07:16)
[2022-07-22 07:24] LABS: Venous Bicarbonate HCO3 32.2 mmol/L (24-28)
[2022-07-22] MEDS: Nystatin TOP POWDER 15 GM BTL TOPICAL SCH ×2 (09:03→20:51)
[2022-07-22] MEDS: Pantoprazole VIAL 40 MG VIAL IV SCH (11:21)
[2022-07-22] MEDS: Morphine 2 MG/ML SYRINGE IV PRN (11:21)
[2022-07-22 11:57] LABS: Cyclic Citrullinated Pept IgG <15.6 U
[2022-07-22] MEDS ORDERED: levETIRAcetam IV 1,000 MG in NS 0.9% 100 ml BAG 100 ML IVPB SCH (14:18)
[2022-07-22] MEDS ORDERED: levETIRAcetam 1000MG IVPREMIX 1,000 MG/100 ML BAG IVPB SCH (14:30)
[2022-07-22] MEDS: Enoxaparin 40 MG/0.4 ML SYR SUBCUT SCH (17:41)
[2022-07-22] MEDS ORDERED: Valproic Acid IV 375 MG in NS 0.9% 100 ml BAG 100 ML IVPB SCH (18:00)
[2022-07-22] MEDS: Valproic Acid LIQ 250 MG/5 ML UDC PO SCH (20:32)
[2022-07-22] MEDS: levETIRAcetam 1000MG IVPREMIX 1,000 MG/100 ML BAG IVPB SCH (20:45)
[2022-07-23] MEDS: Valproic Acid LIQ 250 MG/5 ML UDC PO SCH ×3 (03:00→17:52)
[2022-07-23 05:27] LABS: ABS Lymphocytes 1.6 10^3/ul (1.0-4.8); ABS Monocytes 0.7 10^3/ul (0-0.8); ABS Neutrophils 4.8 10^3/ul (1.5-7.7); Eosinophil % 0.6 %; Hematocrit 49 % (35-47); Hemoglobin 16.4 g/dL (12.0-16.0); Lymphocyte % 22.1 %; Mean Corpuscular HGB Conc 34 g/dL (31-36); Mean Corpuscular Hemoglobin 35 pg (27-31); Mean Corpuscular Volume 103 fL (80-97); Mean Platelet Volume 9.2 fL (7.4-10.4); Platelet Count 177 10^3/uL (150-450); Red Blood Count 4.71 10^6 /uL (3.70-4.87); Red Cell Distribution Width 14 % (10-15)
[2022-07-23 05:47] LABS: Potassium 3.5 mmol/L (3.5-5.0)
[2022-07-23 05:48] LABS: Calcium 9.2 mg/dL (8.6-10.3); Magnesium 1.9 mg/dL (1.9-2.7); Phosphorus 3.2 mg/dL (2.5-5.0); eGFR CKD-EPI 115.1 (>60)
[2022-07-23] MEDS ORDERED: Magnesium Sulfate 2 gm BAG 2 GM/50 ML BAG IVPB ONE (08:22)
[2022-07-23] MEDS ORDERED: Potassium Chlor 20 meq TAB.ER PO ONE (08:22)
[2022-07-23] MEDS ORDERED: Potassium Chloride LIQUID 20 MEQ/15 ML LIQUID PO ONE (08:23)
[2022-07-23] MEDS: Pantoprazole VIAL 40 MG VIAL IV SCH (08:44)
[2022-07-23] MEDS: levETIRAcetam 1000MG IVPREMIX 1,000 MG/100 ML BAG IVPB SCH ×2 (08:44→20:04)
[2022-07-23] MEDS: Nystatin TOP POWDER 15 GM BTL TOPICAL SCH ×2 (08:45→23:56)
[2022-07-23] MEDS: SPIRIVA Respimat (tiotropium) 2.5 mcg/inh Inhaler INH SCH (08:47)
[2022-07-23] MEDS: Enoxaparin 40 MG/0.4 ML SYR SUBCUT SCH (15:52)
[2022-07-23] MEDS: Morphine 2 MG/ML SYRINGE IV PRN (23:57)
[2022-07-24] MEDS: Valproic Acid LIQ 250 MG/5 ML UDC PO SCH ×3 (02:55→17:56)
[2022-07-24 06:16] LABS: ABS Lymphocytes 1.7 10^3/ul (1.0-4.8); ABS Monocytes 0.7 10^3/ul (0-0.8); ABS Neutrophils 6.3 10^3/ul (1.5-7.7); Eosinophil % 0.5 %; Hematocrit 46 % (35-47); Hemoglobin 15.8 g/dL (12.0-16.0); Lymphocyte % 19.1 %; Mean Corpuscular HGB Conc 34 g/dL (31-36); Mean Corpuscular Hemoglobin 36 pg (27-31); Mean Corpuscular Volume 103 fL (80-97); Mean Platelet Volume 9.1 fL (7.4-10.4); Nucleated Red Blood Cells % 0.1; Platelet Count 191 10^3/uL (150-450); Red Blood Count 4.45 10^6 /uL (3.70-4.87); Red Cell Distribution Width 14 % (10-15); White Blood Count 8.8 10^3/uL (3.5-10.8)
[2022-07-24 06:37] LABS: Calcium 9.2 mg/dL (8.6-10.3); eGFR CKD-EPI 115.1 (>60)
[2022-07-24] MEDS: SPIRIVA Respimat (tiotropium) 2.5 mcg/inh Inhaler INH SCH (08:10)
[2022-07-24] MEDS: Potassium Chloride LIQUID 20 MEQ/15 ML LIQUID PO SCH (08:13)
[2022-07-24] MEDS: Pantoprazole VIAL 40 MG VIAL IV SCH (08:13)
[2022-07-24] MEDS: Nystatin TOP POWDER 15 GM BTL TOPICAL SCH ×2 (08:14→20:40)
[2022-07-24] MEDS: levETIRAcetam 1000MG IVPREMIX 1,000 MG/100 ML BAG IVPB SCH ×2 (08:21→20:36)
[2022-07-24] MEDS: Enoxaparin 40 MG/0.4 ML SYR SUBCUT SCH (14:53)
[2022-07-24] MEDS: Morphine 2 MG/ML SYRINGE IV PRN (22:59)
[2022-07-25] MEDS: Valproic Acid LIQ 250 MG/5 ML UDC PO SCH ×3 (02:54→16:39)
[2022-07-25] MEDS: SPIRIVA Respimat (tiotropium) 2.5 mcg/inh Inhaler INH SCH (07:46)
[2022-07-25] MEDS: Potassium Chloride LIQUID 20 MEQ/15 ML LIQUID PO SCH (08:07)
[2022-07-25] MEDS: Pantoprazole VIAL 40 MG VIAL IV SCH (08:07)
[2022-07-25] MEDS: Nystatin TOP POWDER 15 GM BTL TOPICAL SCH ×2 (08:07→21:41)
[2022-07-25] MEDS: levETIRAcetam 1000MG IVPREMIX 1,000 MG/100 ML BAG IVPB SCH ×2 (08:12→20:24)
[2022-07-25] MEDS: Nicotine PATCH 21 MG/24 HR PATCH TRANSDERM SCH (12:35)
[2022-07-25] MEDS: Enoxaparin 40 MG/0.4 ML SYR SUBCUT SCH (14:25)
[2022-07-25] MEDS ORDERED: Albuterol/Ipratropium NEB.SOL (2.5/0.5 MG) 3 ML NEB.SOLN ONE (19:47)
[2022-07-25] MEDS ORDERED: Albuterol/Ipratropium NEB.SOL (2.5/0.5 MG) 3 ML NEB.SOLN INH ONE (19:52)
[2022-07-25] MEDS ORDERED: methylPREDNISolone SOD SUCC 125 mg 2 ML VIAL IV ONE (20:00)
[2022-07-26] MEDS: Albuterol/Ipratropium NEB.SOL (2.5/0.5 MG) 3 ML NEB.SOLN INH PRN (00:05)
[2022-07-26] MEDS: Valproic Acid LIQ 250 MG/5 ML UDC PO SCH ×5 (02:58→19:54)
[2022-07-26] MEDS ORDERED: Valproic Acid IV 500 MG in NS 0.9% 100 ml BAG 100 ML IVPB SCH (03:30)
[2022-07-26 03:31] LABS: PCO2 Arterial 39 mmHg (35-45); PO2 Arterial 84 mmHg (80-100)
[2022-07-26] MEDS ORDERED: LORazepam 2 mg VIAL 1 ml IV PUSH ONE (03:38)
[2022-07-26] MEDS ORDERED: Lorazepam PYXIS KEY PRN (03:38)
[2022-07-26 04:56] LABS: ABS Lymphocytes 1.1 10^3/ul (1.0-4.8); ABS Monocytes 0.3 10^3/ul (0-0.8); ABS Neutrophils 8.8 10^3/ul (1.5-7.7); Hematocrit 46 % (35-47); Hemoglobin 15.8 g/dL (12.0-16.0); Lymphocyte % 10.6 %; Mean Corpuscular HGB Conc 34 g/dL (31-36); Mean Corpuscular Hemoglobin 35 pg (27-31); Mean Corpuscular Volume 103 fL (80-97); Mean Platelet Volume 8.9 fL (7.4-10.4); Platelet Count 269 10^3/uL (150-450); Red Cell Distribution Width 14 % (10-15); White Blood Count 10.2 10^3/uL (3.5-10.8)
[2022-07-26 05:32] LABS: Calcium 9.9 mg/dL (8.6-10.3); Magnesium 1.9 mg/dL (1.9-2.7); eGFR CKD-EPI 103.1 (>60)
[2022-07-26 05:36] LABS: Potassium 5.1 mmol/L (3.5-5.0)
[2022-07-26] MEDS: Mometasone/Formoter 100/5 MDI INH SCH ×2 (07:22→19:38)
[2022-07-26] MEDS ORDERED: Nicotine PATCH 21 MG/24 HR PATCH TRANSDERM SCH (09:00)
[2022-07-26] MEDS: levETIRAcetam 1000MG IVPREMIX 1,000 MG/100 ML BAG IVPB SCH (09:22)
[2022-07-26] MEDS: Nicotine PATCH 21 MG/24 HR PATCH TRANSDERM SCH (10:08)
[2022-07-26] MEDS: Pantoprazole VIAL 40 MG VIAL IV SCH (10:11)
[2022-07-26] MEDS: Enoxaparin 30 MG/0.3 ML SYR SUBCUT SCH (10:17)
[2022-07-26] MEDS: Nystatin TOP POWDER 15 GM BTL TOPICAL SCH ×2 (10:17→19:54)
[2022-07-26] MEDS ORDERED: Polyethylene Glycol 3350 17 GM PACKET PO PRN (10:30)
[2022-07-26] MEDS: levETIRAcetam LIQ 500 MG/5 ML UDC PO SCH (19:53)
[2022-07-27] MEDS: Valproic Acid LIQ 250 MG/5 ML UDC PO SCH ×3 (03:18→20:11)
[2022-07-27 04:42] LABS: ABS Lymphocytes 1.8 10^3/ul (1.0-4.8); ABS Monocytes 0.6 10^3/ul (0-0.8); ABS Neutrophils 5.8 10^3/ul (1.5-7.7); Hematocrit 44 % (35-47); Hemoglobin 14.7 g/dL (12.0-16.0); Lymphocyte % 21.9 %; Mean Corpuscular HGB Conc 33 g/dL (31-36); Mean Corpuscular Hemoglobin 34 pg (27-31); Mean Corpuscular Volume 103 fL (80-97); Mean Platelet Volume 8.6 fL (7.4-10.4); Nucleated Red Blood Cells % 0.1; Platelet Count 295 10^3/uL (150-450); Red Blood Count 4.28 10^6 /uL (3.70-4.87); Red Cell Distribution Width 14 % (10-15); White Blood Count 8.2 10^3/uL (3.5-10.8)
[2022-07-27 05:23] LABS: Calcium 9.5 mg/dL (8.6-10.3); Magnesium 1.8 mg/dL (1.9-2.7); Phosphorus 4.7 mg/dL (2.5-5.0); Potassium 4.5 mmol/L (3.5-5.0); eGFR CKD-EPI 108.1 (>60)
[2022-07-27] MEDS ORDERED: Magnesium Sulfate 2 gm BAG 2 GM/50 ML BAG IVPB ONE (05:35)
[2022-07-27] MEDS: Nicotine PATCH 21 MG/24 HR PATCH TRANSDERM SCH (08:16)
[2022-07-27] MEDS: Enoxaparin 30 MG/0.3 ML SYR SUBCUT SCH (08:16)
[2022-07-27] MEDS: levETIRAcetam LIQ 500 MG/5 ML UDC PO SCH ×2 (08:23→21:23)
[2022-07-27] MEDS: Nystatin TOP POWDER 15 GM BTL TOPICAL SCH ×2 (08:24→20:17)
[2022-07-27] MEDS: Mometasone/Formoter 100/5 MDI INH SCH ×2 (08:43→19:14)
[2022-07-28] MEDS: Valproic Acid LIQ 250 MG/5 ML UDC PO SCH ×3 (03:24→19:16)
[2022-07-28 06:59] LABS: ABS Lymphocytes 2.4 10^3/ul (1.0-4.8); ABS Monocytes 0.7 10^3/ul (0-0.8); ABS Neutrophils 7.2 10^3/ul (1.5-7.7); Eosinophil % 0.1 %; Hematocrit 41 % (35-47); Lymphocyte % 23.5 %; Mean Corpuscular HGB Conc 34 g/dL (31-36); Mean Corpuscular Hemoglobin 35 pg (27-31); Mean Corpuscular Volume 104 fL (80-97); Mean Platelet Volume 9.2 fL (7.4-10.4); Platelet Count 338 10^3/uL (150-450); Red Blood Count 3.98 10^6 /uL (3.70-4.87); Red Cell Distribution Width 14 % (10-15); White Blood Count 10.3 10^3/uL (3.5-10.8)
[2022-07-28 07:24] LABS: Calcium 9.3 mg/dL (8.6-10.3); Potassium 4.8 mmol/L (3.5-5.0); eGFR CKD-EPI 110.7 (>60)
[2022-07-28] MEDS: Mometasone/Formoter 100/5 MDI INH SCH ×2 (08:25→19:33)
[2022-07-28] MEDS: Albuterol/Ipratropium NEB.SOL (2.5/0.5 MG) 3 ML NEB.SOLN INH PRN (09:11)
[2022-07-28 09:32] LABS: PCO2 Arterial 47 mmHg (35-45); PO2 Arterial 61 mmHg (80-100)
[2022-07-28] MEDS: Nicotine PATCH 21 MG/24 HR PATCH TRANSDERM SCH (09:42)
[2022-07-28] MEDS: Enoxaparin 30 MG/0.3 ML SYR SUBCUT SCH (10:06)
[2022-07-28] MEDS: levETIRAcetam LIQ 500 MG/5 ML UDC PO SCH ×2 (10:06→22:21)
[2022-07-28] MEDS: Nystatin TOP POWDER 15 GM BTL TOPICAL SCH ×2 (10:06→19:17)
[2022-07-28 10:25] LABS: C Reactive Protein 2.47 mg/L (<8.01); Magnesium 1.8 mg/dL (1.9-2.7)
[2022-07-28] MEDS ORDERED: Magnesium Sulfate 2 gm BAG 2 GM/50 ML BAG IVPB ONE (10:27)
[2022-07-28] MEDS ORDERED: cefTRIAXone 1 gm/50 mL D5W 1 GM/50 ML BAG IV SCH (10:30)
[2022-07-28] MEDS: Albuterol/Ipratropium NEB.SOL (2.5/0.5 MG) 3 ML NEB.SOLN INH SCH ×2 (13:21→19:33)
[2022-07-28] MEDS ORDERED: Acetylcysteine INHALATION SOL 200 MG/ML NEB.SOLN 10 ML INH PRN (15:00)
[2022-07-29] MEDS: Valproic Acid LIQ 250 MG/5 ML UDC PO SCH ×3 (03:13→19:25)
[2022-07-29 04:30] LABS: ABS Lymphocytes 2.2 10^3/ul (1.0-4.8); ABS Monocytes 0.7 10^3/ul (0-0.8); ABS Neutrophils 6.1 10^3/ul (1.5-7.7); Hematocrit 40 % (35-47); Hemoglobin 13.6 g/dL (12.0-16.0); Lymphocyte % 24.6 %; Mean Corpuscular HGB Conc 34 g/dL (31-36); Mean Corpuscular Hemoglobin 35 pg (27-31); Mean Corpuscular Volume 104 fL (80-97); Mean Platelet Volume 8.5 fL (7.4-10.4); Platelet Count 339 10^3/uL (150-450); Red Blood Count 3.89 10^6 /uL (3.70-4.87); Red Cell Distribution Width 14 % (10-15)
[2022-07-29 05:18] LABS: Calcium 9.4 mg/dL (8.6-10.3); Magnesium 1.8 mg/dL (1.9-2.7); Potassium 4.3 mmol/L (3.5-5.0); eGFR CKD-EPI 111.6 (>60)
[2022-07-29] MEDS ORDERED: Magnesium Sulfate 2 gm BAG 2 GM/50 ML BAG IVPB ONE (06:02)
[2022-07-29] MEDS: Mometasone/Formoter 100/5 MDI INH SCH ×2 (07:01→19:06)
[2022-07-29] MEDS: Albuterol/Ipratropium NEB.SOL (2.5/0.5 MG) 3 ML NEB.SOLN INH SCH ×3 (07:01→19:05)
[2022-07-29] MEDS: Enoxaparin 30 MG/0.3 ML SYR SUBCUT SCH (08:44)
[2022-07-29] MEDS: levETIRAcetam LIQ 500 MG/5 ML UDC PO SCH ×2 (08:44→19:26)
[2022-07-29] MEDS: Nicotine PATCH 21 MG/24 HR PATCH TRANSDERM SCH (08:51)
[2022-07-29] MEDS: Nystatin TOP POWDER 15 GM BTL TOPICAL SCH ×2 (09:45→19:26)
[2022-07-29] MEDS ORDERED: Metoprolol Tartrate 5 mg VIAL 5 ml VIAL (1 mg/ml) IV ONE (17:17)
[2022-07-30] MEDS: Valproic Acid LIQ 250 MG/5 ML UDC PO SCH ×3 (02:32→21:48)
[2022-07-30 04:23] LABS: Hematocrit 39 % (35-47); Hemoglobin 13.3 g/dL (12.0-16.0); Mean Corpuscular HGB Conc 34 g/dL (31-36); Mean Corpuscular Hemoglobin 35 pg (27-31); Mean Corpuscular Volume 104 fL (80-97); Mean Platelet Volume 8.5 fL (7.4-10.4); Platelet Count 296 10^3/uL (150-450); Red Blood Count 3.77 10^6 /uL (3.70-4.87); Red Cell Distribution Width 14 % (10-15); White Blood Count 10.7 10^3/uL (3.5-10.8)
[2022-07-30 04:51] LABS: Calcium 9.1 mg/dL (8.6-10.3); Magnesium 1.6 mg/dL (1.9-2.7); Potassium 3.7 mmol/L (3.5-5.0); eGFR CKD-EPI 109.8 (>60)
[2022-07-30] MEDS ORDERED: Magnesium Sulfate 2 gm BAG 2 GM/50 ML BAG IVPB ONE (05:54)
[2022-07-30] MEDS: Mometasone/Formoter 100/5 MDI INH SCH ×2 (07:35→18:34)
[2022-07-30] MEDS: Albuterol/Ipratropium NEB.SOL (2.5/0.5 MG) 3 ML NEB.SOLN INH SCH ×3 (07:41→20:53)
[2022-07-30] MEDS: levETIRAcetam LIQ 500 MG/5 ML UDC PO SCH ×2 (09:46→21:50)
[2022-07-30] MEDS: Nystatin TOP POWDER 15 GM BTL TOPICAL SCH ×2 (09:46→22:35)
[2022-07-30] MEDS: Enoxaparin 30 MG/0.3 ML SYR SUBCUT SCH (09:47)
[2022-07-30] MEDS: Nicotine PATCH 21 MG/24 HR PATCH TRANSDERM SCH (09:47)
[2022-07-30] MEDS ORDERED: Iohexol 350 (CONTRAST) 500 ML MDV IV ONE ×2 (10:30→10:53)
[2022-07-30] MEDS: Lidocaine PATCH 5% PATCH TRANSDERM SCH (11:45)
[2022-07-30] MEDS ORDERED: Morphine 2 MG/ML SYRINGE IV ONE ×2 (14:18→22:25)
[2022-07-30 18:13] LABS: ANNA-1, S Negative titer (<1:240); ANNA-2, S Negative titer (<1:240); DPPX Ab IFA, S Negative (Negative); GFAP IFA, S Negative (Negative); NIF IFA, S Negative (Negative); mGluR1 Ab IFA, S Negative (Negative)
[2022-07-30] MEDS: Albuterol/Ipratropium NEB.SOL (2.5/0.5 MG) 3 ML NEB.SOLN INH PRN (18:19)
[2022-07-30] MEDS ORDERED: Morphine ORAL CONCENTRATE 5 MG/0.25 ML ORAL.SYRIN PO PRN (22:23)
[2022-07-31] MEDS: Valproic Acid LIQ 250 MG/5 ML UDC PO SCH (03:51)
[2022-07-31] MEDS ORDERED: Morphine 2 MG/ML SYRINGE IV ONE ×2 (05:00→21:05)
[2022-07-31 07:04] LABS: Hematocrit 40 % (35-47); Hemoglobin 13.6 g/dL (12.0-16.0); Mean Corpuscular HGB Conc 34 g/dL (31-36); Mean Corpuscular Hemoglobin 35 pg (27-31); Mean Corpuscular Volume 104 fL (80-97); Mean Platelet Volume 8.2 fL (7.4-10.4); Platelet Count 332 10^3/uL (150-450); Red Blood Count 3.88 10^6 /uL (3.70-4.87); Red Cell Distribution Width 14 % (10-15)
[2022-07-31 08:12] LABS: Calcium 9.6 mg/dL (8.6-10.3); Magnesium 1.9 mg/dL (1.9-2.7); eGFR CKD-EPI 110.2 (>60)
[2022-07-31] MEDS: Albuterol/Ipratropium NEB.SOL (2.5/0.5 MG) 3 ML NEB.SOLN INH SCH ×2 (08:13→20:02)
[2022-07-31] MEDS: Mometasone/Formoter 100/5 MDI INH SCH ×2 (08:14→20:00)
[2022-07-31 08:15] LABS: ABS Lymphocytes 3.4 10^3/ul (1.0-4.8); ABS Monocytes 1.1 10^3/ul (0-0.8); ABS Neutrophils 8.4 10^3/ul (1.5-7.7); Eosinophil % 0.2 %; Lymphocyte % 26.5 %
[2022-07-31 08:20] LABS: Potassium 5.1 mmol/L (3.5-5.0)
[2022-07-31] MEDS: Lidocaine PATCH 5% PATCH TRANSDERM SCH (09:24)
[2022-07-31] MEDS: Nicotine PATCH 21 MG/24 HR PATCH TRANSDERM SCH (09:24)
[2022-07-31] MEDS: Enoxaparin 30 MG/0.3 ML SYR SUBCUT SCH (09:25)
[2022-07-31] MEDS: Nystatin TOP POWDER 15 GM BTL TOPICAL SCH ×3 (09:33→20:43)
[2022-07-31] MEDS: Albuterol/Ipratropium NEB.SOL (2.5/0.5 MG) 3 ML NEB.SOLN INH PRN (10:19)
[2022-07-31 10:21] LABS: Anti-Glial/Neuronal Nuc Ab-1 A Negative titer (<1:240); Anti-Neuronal Nuclear Ab Type1 Negative titer (<1:240); Anti-Neuronal Nuclear Ab Type2 Negative titer (<1:240); Anti-Neuronal Nuclear Ab Type3 Negative titer (<1:240); CRMP-5 IgG Antibody Negative titer (<1:240); Purkinje Cell Cytoplasm Typ Tr Negative titer (<1:240); Purkinje Cell Cytoplasm Type 1 Negative titer (<1:240); Purkinje Cell Cytoplasm Type 2 Negative titer (<1:240)
[2022-07-31] MEDS: Morphine ER 30 mg TAB ** extended release PO SCH ×2 (11:06→20:38)
[2022-08-01] MEDS: Morphine ER 30 mg TAB ** extended release PO SCH ×2 (08:02→20:33)
[2022-08-01] MEDS: Enoxaparin 30 MG/0.3 ML SYR SUBCUT SCH (08:06)
[2022-08-01] MEDS: Lidocaine PATCH 5% PATCH TRANSDERM SCH (08:12)
[2022-08-01] MEDS: Nystatin TOP POWDER 15 GM BTL TOPICAL SCH ×2 (08:12→20:34)
[2022-08-01] MEDS: Nicotine PATCH 21 MG/24 HR PATCH TRANSDERM SCH (08:13)
[2022-08-01] MEDS: Mometasone/Formoter 100/5 MDI INH SCH ×2 (09:09→19:14)
[2022-08-01] MEDS: Albuterol/Ipratropium NEB.SOL (2.5/0.5 MG) 3 ML NEB.SOLN INH SCH ×2 (09:09→19:14)
[2022-08-01] MEDS ORDERED: Morphine 2 MG/ML SYRINGE IV ONE (13:08)
[2022-08-02 07:27] LABS: Calcium 9.6 mg/dL (8.6-10.3); Potassium 4.8 mmol/L (3.5-5.0)
[2022-08-02 07:29] LABS: ABS Lymphocytes 3.4 10^3/ul (1.0-4.8); ABS Monocytes 0.8 10^3/ul (0-0.8); ABS Neutrophils 5.4 10^3/ul (1.5-7.7); Eosinophil % 0.2 %; Hematocrit 37 % (35-47); Hemoglobin 12.2 g/dL (12.0-16.0); Lymphocyte % 35.6 %; Mean Corpuscular HGB Conc 33 g/dL (31-36); Mean Corpuscular Hemoglobin 35 pg (27-31); Mean Corpuscular Volume 106 fL (80-97); Mean Platelet Volume 8.4 fL (7.4-10.4); Platelet Count 290 10^3/uL (150-450); Red Blood Count 3.48 10^6 /uL (3.70-4.87); Red Cell Distribution Width 14 % (10-15); White Blood Count 9.6 10^3/uL (3.5-10.8)
[2022-08-02] MEDS: Albuterol/Ipratropium NEB.SOL (2.5/0.5 MG) 3 ML NEB.SOLN INH SCH ×2 (07:58→19:33)
[2022-08-02] MEDS: Mometasone/Formoter 100/5 MDI INH SCH ×2 (07:58→19:33)
[2022-08-02] MEDS: Enoxaparin 30 MG/0.3 ML SYR SUBCUT SCH (08:18)
[2022-08-02] MEDS: Morphine ER 30 mg TAB ** extended release PO SCH ×2 (08:18→20:35)
[2022-08-02] MEDS: Lidocaine PATCH 5% PATCH TRANSDERM SCH (08:19)
[2022-08-02] MEDS: Nicotine PATCH 21 MG/24 HR PATCH TRANSDERM SCH (08:19)
[2022-08-02] MEDS: Nystatin TOP POWDER 15 GM BTL TOPICAL SCH ×2 (08:20→20:35)
[2022-08-02] MEDS ORDERED: Morphine 2 MG/ML SYRINGE IV PRN (15:28)
[2022-08-02] MEDS ORDERED: Miconazole VAGINAL CREAM 2% 45 GM VAGINAL SCH (21:00)
[2022-08-03 07:06] LABS: ABS Lymphocytes 3.3 10^3/ul (1.0-4.8); ABS Neutrophils 7.2 10^3/ul (1.5-7.7); Eosinophil % 0.3 %; Hematocrit 33 % (35-47); Lymphocyte % 28.6 %; Mean Corpuscular HGB Conc 33 g/dL (31-36); Mean Corpuscular Hemoglobin 35 pg (27-31); Mean Corpuscular Volume 106 fL (80-97); Mean Platelet Volume 8.3 fL (7.4-10.4); Platelet Count 222 10^3/uL (150-450); Red Blood Count 3.13 10^6 /uL (3.70-4.87); Red Cell Distribution Width 14 % (10-15); White Blood Count 11.6 10^3/uL (3.5-10.8)
[2022-08-03 07:20] LABS: Calcium 8.9 mg/dL (8.6-10.3); Magnesium 1.8 mg/dL (1.9-2.7); Potassium 4.5 mmol/L (3.5-5.0); eGFR CKD-EPI 111.1 (>60)
[2022-08-03] MEDS: Albuterol/Ipratropium NEB.SOL (2.5/0.5 MG) 3 ML NEB.SOLN INH SCH (07:26)
[2022-08-03] MEDS: Mometasone/Formoter 100/5 MDI INH SCH (07:27)
[2022-08-03] MEDS ORDERED: Magnesium Sulfate 2 gm BAG 2 GM/50 ML BAG IVPB ONE (08:58)
[2022-08-03] MEDS: Morphine ER 30 mg TAB ** extended release PO SCH (09:37)
[2022-08-03] MEDS: Nystatin TOP POWDER 15 GM BTL TOPICAL SCH (09:38)
[2022-08-03] MEDS: Lidocaine PATCH 5% PATCH TRANSDERM SCH (09:38)
[2022-08-03] MEDS: Enoxaparin 30 MG/0.3 ML SYR SUBCUT SCH (09:38)
[2022-08-03 11:08] VITALS: BP 112/67
== END 2022-08-03 12:40 | disposition home or self-care (01) | DRG 951 ==
LOC: ED 07:47 → EDHOLD 14:29 → SUATTDRO 14:29 → ICU 16:40 → MEDTELE 07-20 19:28 → ICU 07-26 03:41 → MED 07-27 15:30 → ICU 07-28 14:33 → MED 07-30 13:03
PROVIDERS: ADMIT Internal Medicine Critical Care Medicine; ATTEND Internal Medicine

== ENCOUNTER 2023-08-27 21:56 | Inpatient (IN) ==
[2023-08-27] MEDS ORDERED: NS 0.9% 1000 ml BAG 1,000 ML IV ONE (22:32)
[2023-08-27 23:07] LABS: ABS Basophils 0.1 10^3/uL (0.0-0.1); ABS Lymphocytes 1.3 10^3/uL (1.0-4.8); ABS Monocytes 1.2 10^3/uL (0.0-0.9); ABS Neutrophils 5.4 10^3/uL (1.5-7.6); Hematocrit 35.9 % (35-45); Hemoglobin 12.5 g/dL (11.5-14.3); Lymphocyte % 15.8 %; Mean Corpuscular Hgb Conc 34.8 g/dL (31-36); Mean Corpuscular Volume 100.6 fL (80-97); Mean Platelet Volume 8.3 fL (7.5-11.2); Platelet Count 130 10^3/uL (150-450); Red Blood Count 3.57 10^6/uL (3.63-4.92); Red Cell Distribution Width 14.4 % (12-17); White Blood Count 7.9 10^3/uL (3.8-11.8)
[2023-08-27 23:12] LABS: PCO2 Arterial 45 mmHg (35-45); PO2 Arterial 74 mmHg (80-100)
[2023-08-27 23:31] LABS: ALT 10 U/L (7-52); AST 24 U/L (13-39); Albumin 3.8 g/dL (3.2-5.2); Albumin/Globulin Ratio 1.4 (1-3); Alkaline Phosphatase 49 U/L (35-149); Anion Gap 8 mmol/L (2-16); Blood Urea Nitrogen 24 mg/dL (6-24); CO2 Carbon Dioxide 33 mmol/L (22-32); Calcium 9.6 mg/dL (8.6-10.3); Chloride 97 mmol/L (101-111); Creatine Kinase 191 U/L (10-223); Creatinine, Serum 1.02 mg/dL (0.51-0.95); Globulin 2.8 g/dL (2-4); Glucose 90 mg/dL (70-100); Lipase 13 U/L (11.0-82.0); Magnesium 1.8 mg/dL (1.9-2.7); Sodium 138 mmol/L (135-145); Total Bilirubin 0.7 mg/dL (0.2-1.0); Total Protein 6.6 g/dL (6.4-8.9); eGFR CKD-EPI 67.4 (>60)
[2023-08-27 23:37] LABS: HCG Pregnancy < 0.60 mIU/mL
[2023-08-28] MEDS ORDERED: Albuterol 2.5mg/3 ml (0.083%) NEB.SOLN INH PRN (01:02)
[2023-08-28] MEDS ORDERED: Remdesivir 100 mg Vial 200 MG in NS 0.9% 250 ml 210 ML IV ONE (01:30)
[2023-08-28 01:57] LABS: Urine Appearance Clear; Urine Bilirubin Negative (Negative); Urine Blood Negative (Negative); Urine Color Yellow; Urine Glucose Negative (Negative); Urine Ketones Negative (Negative); Urine Nitrite Negative (Negative); Urine Protein Negative (Negative); Urine Specific Gravity 1.015 (1.002-1.030); Urine Urobilinogen Negative (Negative)
[2023-08-28] MEDS: Enoxaparin 40 MG/0.4 ML SYR SUBCUT SCH ×2 (01:57→22:54)
[2023-08-28] MEDS ORDERED: Morphine ORAL CONCENTRATE 5 MG/0.25 ML ORAL.SYRIN PO SCH (02:00)
[2023-08-28] MEDS: Morphine ER 30 mg TAB ** extended release PO PRN ×2 (06:25→22:55)
[2023-08-28] MEDS: Tiotropium Brom/Olodaterol MDI (ACUTE) INH SCH (07:21)
[2023-08-28] MEDS: Albuterol HFA INHALER 8 gm MDI INH PRN (20:41)
[2023-08-28] MEDS: Remdesivir 100 mg Vial 100 MG in NS 0.9% 250 ml 230 ML IV SCH (22:58)
[2023-08-29] MEDS ORDERED: Acetylcysteine ORAL SOL 200 mg/ml 30 ml VIAL PO SCH (04:00)
[2023-08-29] MEDS ORDERED: Acetylcysteine INH SOL (RT) 200 MG/ML 4 ML VIAL INH PRN (04:08)
[2023-08-29] MEDS: Albuterol HFA INHALER 8 gm MDI INH PRN (04:23)
[2023-08-29 08:11] LABS: ABS Basophils 0.1 10^3/uL (0.0-0.1); ABS Lymphocytes 1.4 10^3/uL (1.0-4.8); ABS Monocytes 0.7 10^3/uL (0.0-0.9); ABS Neutrophils 5.7 10^3/uL (1.5-7.6); ABS Nucleated RBC 0.01 10^3/ul; Hematocrit 36.5 % (35-45); Hemoglobin 12.8 g/dL (11.5-14.3); Mean Corpuscular Hemoglobin 35.5 pg (27-33); Mean Corpuscular Hgb Conc 35.1 g/dL (31-36); Mean Corpuscular Volume 101.1 fL (80-97); Mean Platelet Volume 8.2 fL (7.5-11.2); Nucleated Red Blood Cells % 0.1 %/100WBC (0.0-0.8); Platelet Count 140 10^3/uL (150-450); Red Blood Count 3.61 10^6/uL (3.63-4.92); Red Cell Distribution Width 14.4 % (12-17); White Blood Count 7.9 10^3/uL (3.8-11.8)
[2023-08-29] MEDS: Tiotropium Brom/Olodaterol MDI (ACUTE) INH SCH (08:19)
[2023-08-29 08:29] LABS: Calcium 9.9 mg/dL (8.6-10.3); Creatinine, Serum 0.84 mg/dL (0.51-0.95); Potassium 4.1 mmol/L (3.5-5.0); eGFR CKD-EPI 85.1 (>60)
[2023-08-29] MEDS ORDERED: Furosemide 20 mg/2 ml IV VIAL IV ONE (10:15)
[2023-08-29] MEDS: Morphine ER 30 mg TAB ** extended release PO PRN (16:08)
[2023-08-29] MEDS: Enoxaparin 40 MG/0.4 ML SYR SUBCUT SCH (19:56)
[2023-08-29] MEDS: Remdesivir 100 mg Vial 100 MG in NS 0.9% 250 ml 230 ML IV SCH (19:58)
[2023-08-30] MEDS: Morphine ER 30 mg TAB ** extended release PO PRN ×2 (05:11→21:42)
[2023-08-30 06:45] LABS: ABS Lymphocytes 0.9 10^3/uL (1.0-4.8); ABS Monocytes 0.2 10^3/uL (0.0-0.9); ABS Neutrophils 4.7 10^3/uL (1.5-7.6); Hematocrit 38.6 % (35-45); Hemoglobin 13.4 g/dL (11.5-14.3); Lymphocyte % 15.2 %; Mean Corpuscular Hemoglobin 35.2 pg (27-33); Mean Corpuscular Hgb Conc 34.7 g/dL (31-36); Mean Corpuscular Volume 101.5 fL (80-97); Mean Platelet Volume 8.5 fL (7.5-11.2); Nucleated Red Blood Cells % 0.1 %/100WBC (0.0-0.8); Platelet Count 151 10^3/uL (150-450); Red Blood Count 3.81 10^6/uL (3.63-4.92); Red Cell Distribution Width 14.3 % (12-17); White Blood Count 5.7 10^3/uL (3.8-11.8)
[2023-08-30 07:00] LABS: Calcium 10.2 mg/dL (8.6-10.3); Creatinine, Serum 1.16 mg/dL (0.51-0.95); Magnesium 2.3 mg/dL (1.9-2.7); Potassium 4.1 mmol/L (3.5-5.0); eGFR CKD-EPI 57.8 (>60)
[2023-08-30] MEDS: Tiotropium Brom/Olodaterol MDI (ACUTE) INH SCH (08:31)
[2023-08-30] MEDS ORDERED: NS 0.9% 500 ml BAG 500 ML IV ONE (14:04)
[2023-08-30] MEDS: Enoxaparin 40 MG/0.4 ML SYR SUBCUT SCH (21:31)
[2023-08-31] MEDS: Tiotropium Brom/Olodaterol MDI (ACUTE) INH SCH (08:09)
[2023-08-31 11:07] VITALS: BP 108/72
[2023-08-31 14:05] LABS: ABS Basophils 0.3 10^3/uL (0.0-0.1); ABS Eosinophils 0.1 10^3/uL (0.0-0.5); ABS Lymphocytes 0.9 10^3/uL (1.0-4.8); ABS Monocytes 0.3 10^3/uL (0.0-0.9); ABS Neutrophils 5.3 10^3/uL (1.5-7.6); ABS Nucleated RBC 0.01 10^3/ul; Eosinophil % 1.1 %; Hematocrit 42.7 % (35-45); Hemoglobin 14.5 g/dL (11.5-14.3); Lymphocyte % 12.7 %; Mean Corpuscular Volume 102.8 fL (80-97); Mean Platelet Volume 8.2 fL (7.5-11.2); Nucleated Red Blood Cells % 0.1 %/100WBC (0.0-0.8); Platelet Count 190 10^3/uL (150-450); Red Blood Count 4.15 10^6/uL (3.63-4.92); Red Cell Distribution Width 14.3 % (12-17); White Blood Count 6.9 10^3/uL (3.8-11.8)
[2023-08-31 14:19] LABS: Anion Gap 12 mmol/L (2-16); Blood Urea Nitrogen 41 mg/dL (6-24); CO2 Carbon Dioxide 30 mmol/L (22-32); Calcium 10.2 mg/dL (8.6-10.3); Chloride 101 mmol/L (101-111); Creatinine, Serum 0.91 mg/dL (0.51-0.95); Glucose 180 mg/dL (70-100); Sodium 143 mmol/L (135-145); eGFR CKD-EPI 77.3 (>60)
== END 2023-08-31 15:30 | disposition home or self-care (01) | DRG 137 ==
LOC: EDHOLD 21:56 → ED 21:56 → SUATTDRO 08-28 00:59 → MED 08-28 01:41 → SUATTDRO 08-29 11:00
PROVIDERS: ADMIT Student in an Organized Health Care Education/Training Program; ATTEND Student in an Organized Health Care Education/Training Program

== ENCOUNTER 2023-09-21 02:28 | Inpatient (IN) ==
[~2023-09-21 02:28] MED LIST: Ondansetron 4 mg VIAL 2 MG/ML 2 ml VIAL IV PRN
[2023-09-21] MEDS ORDERED: Piperacillin/Tazobac 3.375 BAG 3.375 GM/100 ML BAG IV ONE (02:39)
[2023-09-21] MEDS ORDERED: Zosyn per Pharmacy NOTE FOLLOW UP SCH (03:00)
[2023-09-21] MEDS ORDERED: fentaNYL INFUSION 50 mcg/mL VL 2,500 MCG/50 ML VIAL IV SCH (03:00)
[2023-09-21] MEDS ORDERED: Valproic Acid LIQ 250 MG/5 ML UDC PO SCH (03:00)
[2023-09-21] MEDS: Chlorhexidine MOUTHWASH 0.12% 15 ML UDC TOPICAL SCH ×5 (03:04→18:56)
[2023-09-21] MEDS ORDERED: Pantoprazole VIAL 40 MG VIAL IV SCH (06:00)
[2023-09-21] MEDS: ZOSYN 3.375 GM Q8H per EXTENDED INFUSION IV SCH ×2 (08:12→18:03)
[2023-09-21] MEDS: fentaNYL INFUSION 50 mcg/mL VL 2,500 MCG/50 ML VIAL IV SCH ×2 (10:20→17:13)
[2023-09-21] MEDS ORDERED: Atropine 1% (ORAL/SL) 15 ML BTL SL PRN (10:53)
[2023-09-21] MEDS ORDERED: Lorazepam PYXIS KEY PRN (10:56)
[2023-09-21] MEDS: LORazepam 2 mg VIAL 1 ml IV PUSH PRN ×4 (11:18→19:47)
[2023-09-21 22:27] VITALS: BP 78/57
[2023-09-22] MEDS ORDERED: Levothyroxine 100 MCG/5 ML VIAL IV SCH (06:00)
== END 2023-09-21 21:03 | disposition expired | DRG 50 ==
LOC: ICU 02:34
PROVIDERS: ADMIT Student in an Organized Health Care Education/Training Program; ATTEND Student in an Organized Health Care Education/Training Program